=== PATIENT | male | born 1965 | race Caucasian/White ===

== ENCOUNTER 2023-01-01 10:04 | Inpatient (IN) | payer OTHER, SELFPAY ==
--- NOTE | ~2023-01-01 | XR_ITS ---
EXAMINATION: XR chest 2V 01/01/2023 12:01 INDICATION: Cough and shortness of breath. PROCEDURE: 2 view chest COMPARISON: 12/21/2018 FINDINGS: The lungs are clear. The cardiomediastinal silhouette is within normal limits. There are no pleural effusions. There is no pneumothorax suspected. There are multiple healed right rib fract ures. The lungs are hyperinflated which is consistent with, but not diagnostic of chronic obstructive pulmonary disease. Prominent left nipple shadow. IMPRESSION: 1: NO ACUTE CARDIOPULMONARY DISEASE. Reviewed, dictated and finalized at location B.
--- NOTE | ~2023-01-01 | CT_ITS ---
EXAMINATION: CT abdomen pelvis wo con DATE: 01/01/2023 13:28 INDICATION: Epigastric pain TECHNIQUE: Computed tomography (CT) of the abdomen and pelvis was performed without intravenous contr ast. The dose-length product was 162.34 mGy-cm. Automated exposure control and iterative reconstructi on technique were employed. COMPARISON: CT dated 12/21/2018 FINDINGS: there are groundglass opacities with areas of tree-in-bud configuration in the left lower l obe, suspicious for infectious/inflammatory process. Heart size normal. No significant pleural or per icardial effusion. Mild atherosclerosis. No evidence for aneurysm. Colonic diverticulosis without blake dence for diverticulitis. There is thickening of the distal esophagus, suspicious for esophagitis. The liver, spleen, pancreas, adrenal glands and kidneys are unremarkable. Gallbladder is present. Non obstructive bowel pattern. No lymphadenopathy. No free air or free fluid. Mild lumbar spondylosis. Th ere is a focal area of fat necrosis with calcification in the left abdomen. IMPRESSION: 1. Mildly thickened distal esophagus, suspicious for esophagitis. Reviewed, dictated and finalized at location B.
--- NOTE | ~2023-01-01 | US_ITS ---
Renal-Bladder ultrasound Clinical History: Acute renal failure Technique: Real-time sonographic imaging of the kidneys and urinary bladder was performed. Findings: The right kidney measures 8.7 cm in length and the left kidney measures 9.2 cm. There is no hydronephrosis or renal calculus identified. Renal cortical echogenicity is within normal limits. No renal mass lesion is identified. The urinary bladder is moderately distended at the time of this exam. No intraluminal echoes are iden tified. No abnormal wall thickening is seen. Impression: Unremarkable ultrasound of the kidneys and urinary bladder. Reviewed, dictated and finalized at location M. Impression: Unremarkable ultrasound of the kidneys and urinary bladder.
[2023-01-01 10:15] VITALS: BP 140/92; PULSE 70; RESP 16; TEMP 36.4; O2SAT 100
[2023-01-01 11:19] LABS: Basophils Absolute Auto 0.1 K/mm3 (0.0-0.1); Basophils Percent Auto 1.5 % (0.2-1.2); Eosinophils Absolute Auto 0.2 K/mm3 (0-0.3); Hematocrit 47.3 % (42.0-52.0); Hemoglobin 15.9 g/dL (14.0-18.0); Immature Granulocyte Absolute 0.01 K/mm3 (0.00-0.031); Immature Granulocyte Percent A 0.2 % (0-0.5); Lymphocytes Percent Auto 20.8 % (18.3-44.2); Mean Corpuscular HGB Conc 33.6 g/dl (32-36); Mean Corpuscular Hemoglobin 34.3 pg (26-34); Mean Corpuscular Volume 101.9 fl (80-100); Mean Platelet Volume 9.7 fl (7.4-10.4); Monocytes Absolute Auto 0.6 K/mm3 (0.1-0.6); Monocytes Percent Auto 10.6 % (2.6-8.5); Neutrophils Absolute Auto 3.4 K/mm3 (1.3-6.7); Neutrophils Percent Auto 63.9 % (45.5-73.1); Platelet Count Result 203 k/mm3 (150-375); Red Blood Count 4.64 M/mm3 (4.6-6.20); Red Cell Distribution Width 12.7 % (11.5-14.5); White Blood Count 5.3 K/mm3 (4.5-10.0)
[2023-01-01 11:52] LABS: Appearance Urine Cloudy (Clear); Bacteria Urine None Seen /hpf; Bilirubin Urine 2+ (Negative); Blood Urine Negative (Negative); Color Urine Dark Yellow (Yellow); Glucose Urine UA Negative (Negative); Hyaline Casts Urine Present /lpf; Ketones Urine 1+ mg/dL (Negative); Leukocyte Esterase Ur Trace LEU/UL (Negative); Need Manual Microscopic Reviewed; Nitrate Urine Negative (Negative); Non Pathogenic Casts >20; Protein Urine 2+ mg/dL (Negative); RBC Urine 0-2 /hpf (0-2); Specific Grav Ur 1.028 (1.001-1.035); Squamous Epithelial Cell Urine Many /hpf (Few); WBC Urine 0-5 /hpf
[2023-01-01 11:53] LABS: Add Urine Microscopic? YES
[2023-01-01 13:01] LABS: Alanine Aminotransferase 20 U/L (6-50); Albumin Level 4.3 g/dL (3.5-5.1); Alkaline Phosphatase 78 U/L (38-126); Anion Gap 8 mmol/L (8-16); Aspartate Amino Transferase 42 U/L (17-59); Bilirubin,Total 0.8 mg/dL (0.2-1.3); Blood Urea Nitrogen 33 mg/dL (9-20); Calcium 9.3 mg/dL (8.4-10.2); Carbon Dioxide 38 mmol/L (22-30); Chloride 91 mmol/L (98-107); Estimated CRCL calculation 27 ml/min; Estimated Glomerular Filt Rate 27; Glucose 99 mg/dL (65-110); Lipase 52 U/L (23-300); Sodium 137 mmol/L (137-145)
[2023-01-01 13:37] VITALS: BP 130/85; PULSE 57; RESP 18; O2SAT 100
[2023-01-01] MEDS: SODIUM CHLORIDE 0.9% IV 1,000 ML 999 ML IV CONT (13:38)
--- NOTE | 2023-01-01 13:45 | ED.GENADULT ---
HPI - General Adult General Chief complaint: Abdominal Pain Stated complaint: abd pain Time Seen by Provider: 01/01/23 11:24 History of Present Illness HPI narrative: Patient is a 57-year-old male who presents ER with nausea and vomiting. Worsening over the last week and a half. Unable to keep down food and water in the last couple days due to this. Has been taking reflux medication without improvement. Reports weight loss but unsure how much. Patient is very thin appearing and has temporal wasting. Denies history of malignancy. He is a smoker. No diarrhea or abdominal distention or pain. He does not follow with a doctor. Patient does not feel that food is getting stuck in his esophagus. Related Data Allergies Allergy/AdvReac Type Severity Reaction Status Date / Time No Known Allergies Allergy Verified 01/01/23 11:37 Review of Systems Review of Systems: All systems reviewed & are unremarkable except as noted in HPI and below Constitutional: Constitutional: Denies chills, Denies fatigue and Denies fever(s) ENT: Denies dysphagia, Denies nasal congestion and Denies sore throat Cardiovascular: Cardiovascular: Denies chest pain, Denies rapid heart rate and Denies radiating jaw, neck or arm pain Respiratory: Respiratory: Denies cough and Denies dyspnea Gastrointestinal: Gastrointestinal: Denies abdominal pain, Reports heartburn, Denies diarrhea, Denies nausea and Reports vomiting PMFSH Past Medical History Medical History (Updated 01/01/23 @ 14:23 by Yury Bruno MD) Healthy adult male Surgical History Surgical History (Updated 01/01/23 @ 14:21 by Yury Bruno MD) No history of previous surgery Social History Social History (Updated 01/01/23 @ 14:21 by Yury Bruno MD) Smoking status: Current every day smoker Exam Narrative: GENERAL: Frail-appearing, underweight, and in no acute distress. HEAD: Normocephalic, atraumatic. Temporal wasting. EYES: PERRL and EOMI. ENT: Mucous membranes moist. CHEST: Clear to auscultation. No respiratory distress. HEART: Regular rate and rhythm. Normal peripheral pulses. ABDOMEN: Soft, nontender, nondistended. EXTREMITIES: Normal range of motion. No edema. SKIN: Warm, dry, no rash. NEURO: Alert and oriented x3. PSYCH: Normal mood and affect. Course Course Emergency Course: Discussed concern for malignancy with patient due to his weight loss and smoking history and generally frail appearance. Nothing obvious seen on chest x-ray or imaging of the abdomen. There is esophagitis. Patient may require endoscopy and GI will be consulted. Patient aware he needs to stay in the hospital due to acute kidney injury and will require hydration. Hospitalist has been contacted and has accepted the patient. Vital Signs Vital signs: Vital Signs Temperature 97.6 F 01/01/23 10:15 Pulse Rate 70 01/01/23 10:15 Respiratory Rate 16 01/01/23 10:15 Blood Pressure 140/92 H 01/01/23 10:15 Pulse Oximetry 100 01/01/23 10:15 Temperature 97.6 F 01/01/23 10:15 Pulse Rate 57 L 01/01/23 13:37 Respiratory Rate 18 01/01/23 13:37 Blood Pressure 130/85 01/01/23 13:37 Pulse Oximetry 100 01/01/23 13:37 Medical Decision Making Vital Signs Vital Signs: Vital Signs Temperature 97.6 F 01/01/23 10:15 Pulse Rate 70 01/01/23 10:15 Respiratory Rate 16 01/01/23 10:15 Blood Pressure 140/92 H 01/01/23 10:15 Pulse Oximetry 100 01/01/23 10:15 Temperature 97.6 F 01/01/23 10:15 Pulse Rate 57 L 01/01/23 13:37 Respiratory Rate 18 01/01/23 13:37 Blood Pressure 130/85 01/01/23 13:37 Pulse Oximetry 100 01/01/23 13:37 Lab Data 01/01/23 11:11 01/01/23 11:11 Labs: Lab Results 01/01/23 01/01/23 01/01/23 Range/Units 11:11 11:11 11:21 WBC 5.3 (4.5-10.0) K/mm3 RBC 4.64 (4.6-6.20) M/mm3 Hgb 15.9 (14.0-18.0) g/dL Hct 47.3 (42.0-52.0) % MCV 101.9 H (80-100)
[2023-01-01] MEDS: PANTOPRAZOLE SODIUM IV 40 MG VIAL IV PUSH ×2 (14:08→20:43)
--- NOTE | 2023-01-01 15:15 | PM.IMHP ---
H&P: HPI History of Present Illness Date/Time: 01/01/23 15:15 Chief Complaint: Abdominal pain Narrative: This is a 57-year-old male patient who presents to the emergency room with complaints of nausea vomiting. This has been worse over the last week and half. The patient is only 44 kg. The patient appears older than stated age. The patient is unable to keep any food or water down for the past couple days due to the nausea vomiting. The patient has been taking medication for his acid reflux without any improvement. The patient appears emaciated and denies any malignancy. The patient does not follow with a primary care doctor. Abdominal pelvis CT was read as mild thickened distal esophagus, suspicious for esophagitis. Chest x-ray was read as no acute cardiopulmonary disease. His potassium was found to be 3.0. BUN is 33 and creatinine is 2.5. His GFR is 27. The patient does appear to be dehydrated. The patient has 2+ protein and 1+ ketones in his urine. The patient was started on IV fluids, IV Protonix and potassium was replaced. GI has been consulted. The patient is being admitted to observation status on the date of service of 01/01/2023. Review of Systems Review of Systems: All systems reviewed & are unremarkable except as noted in HPI and below Constitutional: Constitutional: Reports as per HPI and Reports no additional constitutional complaints Eyes: Eyes: Reports as per HPI and Reports no additional eye complaints ENT: Reports system reviewed and no additional complaints, except as documented and Reports Normal hearing present Cardiovascular: Cardiovascular: Reports no additional cardiovascular complaints Respiratory: Respiratory: Reports no additional respiratory complaints and Reports no additional respiratory complaints Gastrointestinal: Gastrointestinal: Reports as per HPI and Reports no additional gastrointestinal complaints Musculoskeletal: Musculoskeletal: Reports no additional musculoskeletal complaints Integumentary/Breasts: Skin/Breast: Reports system reviewed and no additional complaints, except as docu and Reports as per HPI Neurologic: Reports system reviewed and no additional complaints, except as documented, Reports as per HPI and Reports Normal hearing present Psychiatric: Psychiatric: Reports no additional psychiatric complaints and Reports as per HPI Endocrine: Endocrine: Reports no additional endocrine complaints Hematologic/Lymphatic: Hematologic/Lymphatic: Reports no additional hematologic/lymphatic complaints Allergic/Immunologic: Allergic/Immunologic: Reports no additional allergic/immunologic complaints [facility] Past Medical History Medical History (Updated 01/01/23 @ 23:06 by Comfort Douglass NP) Chronic GERD Emphysema lung Healthy adult male Surgical History Surgical History (Updated 01/01/23 @ 14:21 by Yury Bruno MD) No history of previous surgery Family History Family History Sibling Cancer Father Heart disease Mother Dementia Social History Social History (Updated 01/01/23 @ 22:49 by Comfort Douglass NP) Social History: He lives with 2 older brothers. He works for a [employer] which is a factor . The patient continues to smoke 1/2 ppd. he drinks Alcohol 3-4 alcoholic beverage a day . He has no children Code status full code Smoking packs per day: 0.5 Smoking cigarettes per day: 10.0 Years smoked: 20 Smoking pack-years: 10.00 Smoking status: Current every day smoker Tobacco type: cigarettes Second hand tobacco smoke exposure: No Alcohol intake: current Drinks per week: 21 Substance use: never Lack of Transportation: No Lack of Food: Never True Current Housing: I Have Housing Concerned About Future Housing: No Difficulty Paying Gas/Electric Bills: No Difficulty Paying for Meds: No Currently Unemployed: No Education: High School Diploma/G
[2023-01-01 15:42] VITALS: BP 155/81; PULSE 56; RESP 18; O2SAT 100
[2023-01-01] MEDS: SODIUM CHLORIDE 0.9% IV 1,000 ML 125 ML IV CONT (15:42)
[2023-01-01 15:58] VITALS: BMI 14.3
--- NOTE | 2023-01-01 16:05 | ADMGEN ---
This patient, Navid Garrido, was admitted to 3 [facility] Surg Room 309-01. Patient/family oriented to hospital policies and general routines including ID bracelet, bed and alarms, visiting hours, pain management, procedures, bathroom and other care routines, personal items, smoking policy, room service/diet, and visiting hours. Information on how to activate the Rapid Response Team has been discussed. Patient/Family are encouraged to report perceived risks to care and to ask questions if they do not understand what they are told or what they should do. Report received from Radha
[2023-01-01] MEDS: POTASSIUM BICARBONATE 25 MEQ TABEF PO (16:23)
[2023-01-01 20:07] VITALS: BP 140/72; PULSE 53; RESP 18; TEMP 36.4; O2SAT 98
[2023-01-02 00:29] LABS: Anion Gap 2 mmol/L (8-16); Blood Urea Nitrogen 33 mg/dL (9-20); Calcium 7.9 mg/dL (8.4-10.2); Carbon Dioxide 35 mmol/L (22-30); Chloride 100 mmol/L (98-107); Estimated CRCL calculation 28 ml/min; Estimated Glomerular Filt Rate 42; Glucose 107 mg/dL (65-110); Potassium 2.9 mmol/L (3.4-5.0); Sodium 137 mmol/L (137-145)
[2023-01-02] MEDS: SODIUM CHLORIDE 0.9% IV 1,000 ML 125 ML IV CONT ×2 (02:20→17:30)
[2023-01-02 02:32] LABS: Glucose Point of Care 165 mg/dl (65-105)
[2023-01-02 06:00] VITALS: BP 150/77; PULSE 51; RESP 14; TEMP 35.8; O2SAT 98
[2023-01-02 06:13] LABS: Glucose Point of Care 75 mg/dl (65-105)
--- NOTE | 2023-01-02 06:14 | PC.NURSE ---
Addendum entered by JITENDRA Shelby 01/02/23 06:34: Spoke with Dr. Cates. Added in hypoglycemic protocol and bladder scan PRN. Original Note: Pt states that he did not urinate all night and that this is not abnormal for him. Will let the appropriate staff know.
[2023-01-02 07:27] LABS: Basophils Absolute Auto 0.1 K/mm3 (0.0-0.1); Basophils Percent Auto 1.4 % (0.2-1.2); Eosinophils Absolute Auto 0.2 K/mm3 (0-0.3); Eosinophils Percent Auto 3.5 % (0-4.4); Hematocrit 40.2 % (42.0-52.0); Hemoglobin 13.5 g/dL (14.0-18.0); Immature Granulocyte Absolute 0.02 K/mm3 (0.00-0.031); Immature Granulocyte Percent A 0.4 % (0-0.5); Lymphocytes Absolute Auto 0.96 K/mm3 (0.9-3.2); Lymphocytes Percent Auto 18.7 % (18.3-44.2); Mean Corpuscular HGB Conc 33.6 g/dl (32-36); Mean Corpuscular Hemoglobin 34.1 pg (26-34); Mean Corpuscular Volume 101.5 fl (80-100); Mean Platelet Volume 9.6 fl (7.4-10.4); Monocytes Absolute Auto 0.5 K/mm3 (0.1-0.6); Monocytes Percent Auto 9.1 % (2.6-8.5); Neutrophils Absolute Auto 3.4 K/mm3 (1.3-6.7); Neutrophils Percent Auto 66.9 % (45.5-73.1); Platelet Count Result 166 k/mm3 (150-375); Red Blood Count 3.96 M/mm3 (4.6-6.20); Red Cell Distribution Width 12.7 % (11.5-14.5); White Blood Count 5.1 K/mm3 (4.5-10.0)
[2023-01-02 07:39] LABS: Lactic Acid Reflex 0.7 mmol/L (0.7-2.0)
[2023-01-02 07:49] LABS: Alanine Aminotransferase 16 U/L (6-50); Albumin Level 3.3 g/dL (3.5-5.1); Alkaline Phosphatase 50 U/L (38-126); Anion Gap 2 mmol/L (8-16); Aspartate Amino Transferase 35 U/L (17-59); Bilirubin,Total 0.8 mg/dL (0.2-1.3); Blood Urea Nitrogen 29 mg/dL (9-20); Calcium 7.7 mg/dL (8.4-10.2); Carbon Dioxide 33 mmol/L (22-30); Chloride 101 mmol/L (98-107); Estimated CRCL calculation 31 ml/min; Estimated Glomerular Filt Rate 49; Glucose 79 mg/dL (65-110); Lipase 56 U/L (23-300); Magnesium 1.9 mg/dL (1.6-2.3); Potassium 2.8 mmol/L (3.4-5.0); Sodium 136 mmol/L (137-145)
[2023-01-02] MEDS: POTASSIUM CHLORIDE INJ 40 MEQ in SODIUM CHLORIDE 0.9% IV 500 ML 75 MEQ IVPB (09:01)
[2023-01-02] MEDS: PANTOPRAZOLE SODIUM IV 40 MG VIAL IV PUSH ×2 (09:02→21:29)
[2023-01-02] MEDS: THIAMINE HCL 200 MG/2 ML VIAL 100 MG IV PUSH (09:02)
[2023-01-02] MEDS: FOLIC ACID 1 MG/0.2 ML INJ IV PUSH (09:05)
[2023-01-02 10:54] LABS: Free T4 Free Thyroxine Reflex 1.69 ng/dL (0.78-2.19)
[2023-01-02 11:37] LABS: Glucose Point of Care 70 mg/dl (65-105)
[2023-01-02 12:15] LABS: Glucose Point of Care 81 mg/dl (65-105)
[2023-01-02 12:54] LABS: Total Triiodothyronine (T3) 0.91 NG/ML (0.97-1.69)
--- NOTE | 2023-01-02 12:54 | PM.IMPN ---
Progress Note: A&P Assessment and Plan (1) JESSICA (acute kidney injury): Code(s): N17.9 - Acute kidney failure, unspecified Status: Acute Assessment and Plan: The patient did not receive routine medical care. His creatinine is 2.5. The last known creatinine was on 12/21/2018 and was 0.80. Continue with IV fluid Renal ultrasound has been ordered Most likely this is prerenal azotemia related to dehydration. Patient has had a poor oral intake and with regurgitation 01/02 creatinine improved to 1.5 after fluid resuscitation (2) Esophagitis: Code(s): K20.90 - Esophagitis, unspecified without bleeding Status: Acute Assessment and Plan: CT scan suspects esophagitis. GI has been consulted Continue with IV fluid Continue with PPI. Continue with antiemetics (3) Emphysema lung: Code(s): J43.9 - Emphysema, unspecified Status: Acute Assessment and Plan: Advised patient to quit smoking. Smoking cessation has been given to the patient (4) Tobacco abuse: Code(s): Z72.0 - Tobacco use Status: Acute Assessment and Plan: We spoke about smoking cessation for approximately 5 minutes. Smoking cessation information was given to the patient. (5) Hypokalemia: Code(s): E87.6 - Hypokalemia Status: Acute Assessment and Plan: Replace potassium as necessary. (6) Low BMI: Status: Acute Assessment and Plan: Dietary consultation with greatly be appreciated Supplemental dietary needs to with Ensure Patient will possibly need TPN. Will wait for GI assessment for making decision. Subjective Date/time seen: 01/02/23 12:54 Interval history: Patient resting in bed without any specific complaints. Patient told me that approximately a week and half ago he started having regurgitation of his food where he would eat and drink and all of a sudden it would come back up in a bolus of food. He does not have any nausea or emesis but more regurgitation of the food. Patient has had progressive weight loss over years and he states he believes he has lost weight since this happened. Patient body weight is 44 kg with a BMI of 14. Patient is very malnourished and this was likely happening before the incident with his swallowing. Review of Systems Review of Systems: All systems reviewed & are unremarkable except as noted in HPI and below Exam Narrative: GENERAL: Comfortable, no acute distress, cachectic HENMT: moist mucous membranes EYES: EOM intact b/l NECK: no lymphadenopathy RESPIRATORY: clear to auscultation CARDIO: distant heart sounds GI: soft, nontender, bowel sounds present SKIN: no rashes EXTREMITIES: no edema, redness or tenderness Objective Data Vital Signs Vital Signs: Vital Signs - 24 hr 01/01/23 13:37 01/01/23 15:42 01/01/23 16:00 Temperature Pulse Rate 57 L 56 L Respiratory Rate 18 18 Blood Pressure 130/85 155/81 H Pulse Oximetry 100 100 Oxygen Delivery Room Air 01/01/23 20:07 01/01/23 20:00 01/02/23 06:00 Temperature 97.5 F L 96.4 F L Pulse Rate 53 L 51 L Respiratory Rate 18 14 Blood Pressure 140/72 150/77 H Pulse Oximetry 98 98 Oxygen Delivery Room Air 01/02/23 08:00 Temperature Pulse Rate Respiratory Rate Blood Pressure Pulse Oximetry Oxygen Delivery Room Air Intake/Output Intake/Output: Intake & Output 12/30/22 12/31/22 01/01/23 01/02/23 23:59 23:59 23:59 23:59 Intake Total 2522 300 Balance 2522 300 Meds/Results Medications: Active Medications Generic Name Dose Route Start Last Admin Trade Name Freq PRN Reason Stop Dose Admin Chlordiazepoxide HCl 25 mg 01/01/23 22:48 Chlordiazepoxide (*Crx) 25 Mg Capsule PO Q6H PRN Withdrawal Dextrose 12.5 gm 01/02/23 06:25 Dextrose 50% 25 Gm/50 Ml Syringe IV PUSH PRN PRN Hypoglycemia Protocol Folic A
--- NOTE | 2023-01-02 13:24 | WPDGICN ---
Assessment and Plan Assessment and plan (1) Vomiting: Code(s): R11.10 - Vomiting, unspecified Status: Acute Assessment and Plan: Patient with protracted vomiting and subsequent weight loss. He was found to have hypokalemia electrolyte imbalance along with dehydration and azotemia on this basis. CT scan in the ER suggest esophagitis because of the vomiting. Etiology for this is somewhat unclear. Plan for EGD tomorrow. Continue rehydration and correction of electrolytes. (2) Abnormal weight loss: Code(s): R63.4 - Abnormal weight loss Status: Acute (3) Esophagitis: Code(s): K20.90 - Esophagitis, unspecified without bleeding Status: Acute GI Consult Note Consult date/time: 01/02/23 13:24 Reason for consult: Vomiting and weight loss HPI: Navid Garrido is a 57 year old male I am asked to see at the request the hospitalist service because of vomiting and weight loss. Patient reports for many years has had significant nausea vomiting. He states he is unable to keep food down. He states occasionally would food with stay down for some time. Over the last 1 and half weeks he has been able to keep any intake down. Patient presented the emergency room was found to have hypokalemia signs of azotemia and dehydration. CT scan suggested esophagitis. Patient admitted for IV fluids. An EGD Is requested. Patient has lost a significant amount of weight. He denies any bleeding. Denies specific abdominal pain. Review of Systems Review of Systems: Review of systems noncontributory. [facility] Past Medical History Medical History (Updated 01/02/23 @ 13:26 by Atif Chi MD) Chronic GERD Emphysema lung Healthy adult male Surgical History Surgical History (Updated 01/01/23 @ 14:21 by Yury Bruno MD) No history of previous surgery Family History Family History Sibling Cancer Father Heart disease Mother Dementia Social History Social History (Updated 01/01/23 @ 22:49 by Comfort Douglass NP) Social History: He lives with 2 older brothers. He works for a [employer] which is a factor . The patient continues to smoke 1/2 ppd. he drinks Alcohol 3-4 alcoholic beverage a day . He has no children Code status full code Smoking packs per day: 0.5 Smoking cigarettes per day: 10.0 Years smoked: 20 Smoking pack-years: 10.00 Smoking status: Current every day smoker Tobacco type: cigarettes Second hand tobacco smoke exposure: No Alcohol intake: current Drinks per week: 21 Substance use: never Lack of Transportation: No Lack of Food: Never True Current Housing: I Have Housing Concerned About Future Housing: No Difficulty Paying Gas/Electric Bills: No Difficulty Paying for Meds: No Currently Unemployed: No Education: High School Diploma/GED Difficulty w/ Childcare or Family Care: No Spiritual care concerns: No Meds Home Medications and Allergies Home Medications Medication Instructions Recorded Confirmed Type No Home Medications 01/01/23 01/01/23 History Allergies Allergy/AdvReac Type Severity Reaction Status Date / Time No Known Allergies Allergy Verified 01/01/23 16:16 Vital Signs Vital Signs - 24 hr 01/01/23 13:37 01/01/23 15:42 01/01/23 16:00 Temperature Pulse Rate 57 L 56 L Respiratory Rate 18 18 Blood Pressure 130/85 155/81 H Pulse Oximetry 100 100 Oxygen Delivery Room Air 01/01/23 20:07 01/01/23 20:00 01/02/23 06:00 Temperature 97.5 F L 96.4 F L Pulse Rate 53 L 51 L Respiratory Rate 18 14 Blood Pressure 140/72 150/77 H Pulse Oximetry 98 98 Oxygen Delivery Room Air 01/02/23 08:00 Temperature Pulse Rate Respiratory Rate Blood Pressure Pulse Oximetry Oxygen Delivery Room Air Exam Narrative: Physical exam reveals patient to be alert. Vital signs stable. HEENT exam is
[2023-01-02 13:50] VITALS: BMI 14.3
[2023-01-02 14:00] VITALS: BP 147/82; PULSE 50; RESP 16; TEMP 35.8; O2SAT 100
[2023-01-02 14:06] LABS: Potassium 3.5 mmol/L (3.4-5.0)
--- NOTE | 2023-01-02 17:33 | PC.NURSE ---
pt able to tolerate clear liquid dinner. pt c/o no n/v
[2023-01-02 18:08] LABS: Glucose Point of Care 80 mg/dl (65-105)
[2023-01-02 22:00] VITALS: BP 169/95; PULSE 60; RESP 18; TEMP 35.8; O2SAT 98
[2023-01-03] VITALS (13 sets, daily range): BP systolic 142–188; BP diastolic 75–112; PULSE 50–109; RESP 14–23; TEMP 35.7–36.4; O2SAT 95–100
[2023-01-03 00:32] LABS: Glucose Point of Care 146 mg/dl (65-105)
[2023-01-03 00:48] LABS: Potassium 3.1 mmol/L (3.4-5.0)
[2023-01-03] MEDS: SODIUM CHLORIDE 0.9% IV 1,000 ML 125 ML IV CONT ×2 (02:09→20:29)
[2023-01-03 06:17] LABS: Glucose Point of Care 86 mg/dl (65-105)
[2023-01-03 06:31] LABS: Hemoglobin 13.2 g/dL (14.0-18.0); Mean Corpuscular Hemoglobin 33.8 pg (26-34); Mean Corpuscular Volume 102.3 fl (80-100); Mean Platelet Volume 9.6 fl (7.4-10.4); Platelet Count Result 146 k/mm3 (150-375); Red Blood Count 3.91 M/mm3 (4.6-6.20); Red Cell Distribution Width 12.5 % (11.5-14.5); White Blood Count 5.3 K/mm3 (4.5-10.0)
[2023-01-03 06:41] LABS: Alanine Aminotransferase 16 U/L (6-50); Albumin Level 2.9 g/dL (3.5-5.1); Alkaline Phosphatase 47 U/L (38-126); Anion Gap 3 mmol/L (8-16); Aspartate Amino Transferase 31 U/L (17-59); Bilirubin,Total 0.9 mg/dL (0.2-1.3); Blood Urea Nitrogen 21 mg/dL (9-20); Calcium 7.2 mg/dL (8.4-10.2); Carbon Dioxide 28 mmol/L (22-30); Chloride 105 mmol/L (98-107); Estimated CRCL calculation 51 ml/min; Estimated Glomerular Filt Rate > 60; Glucose 81 mg/dL (65-110); Sodium 136 mmol/L (137-145)
--- NOTE | 2023-01-03 06:50 | P.CDI_ITS ---
CDI Query Clarified Diagnosis Clarified Diagnosis: BMI 14.3 Nutritional Diagnostic Statement: Severe malnutrition related to inadequate protein energy intake as evidence by insufficient po intake greater than 1 month and evident severe muscle wasting and subcutaneous fat loss found in NFPE. Inadequate energy intake related to altered GI function as evidence by Pt inability to keep food down. Please refer to Comprehensive Nutrition Assessment for more information. Please clarify severity of protein calorie malnutrition if Known: * Mild * Moderate * Severe * Other/ Unspecified
[2023-01-03 07:06] LABS: Magnesium 1.6 mg/dL (1.6-2.3)
--- NOTE | 2023-01-03 08:07 | P.PNIM_ITS ---
Progress Note: A&P Assessment and Plan (1) JESSICA (acute kidney injury): Code(s): N17.9 - Acute kidney failure, unspecified Status: Acute Assessment and Plan: The patient did not receive routine medical care. His creatinine is 2.5. The last known creatinine was on 12/21/2018 and was 0.80. * Continue with IV fluid * Renal ultrasound has been ordered * Most likely this is prerenal azotemia related to dehydration. * Patient has had a poor oral intake and with regurgitation * 01/02 creatinine improved to 1.5 after fluid resuscitation * 01/03 resolved. Creatinine 0.9. (2) Esophagitis: Code(s): K20.90 - Esophagitis, unspecified without bleeding Status: Acute Assessment and Plan: CT scan suspects esophagitis. * GI has been consulted * IV fluid, PPI, antiemetics * EGD preformed on 01/03 revealing esophageal foreign body with 8 pills noted in the distal esophagus, esophageal stricture that was balloon dilated, and biopsies taken. * Recommended liquid diet only, avoid pills or solid food at this time and follow-up with EGD in 2 weeks for additional dilation. * liquid PPI recommended. (3) Emphysema lung: Code(s): J43.9 - Emphysema, unspecified Status: Acute Assessment and Plan: * Advised patient to quit smoking. * Smoking cessation has been given to the patient * Not in an active exacerbation. (4) Tobacco abuse: Code(s): Z72.0 - Tobacco use Status: Acute Assessment and Plan: * We spoke about smoking cessation for approximately 5 minutes. * Smoking cessation information was given to the patient. (5) Hypokalemia: Code(s): E87.6 - Hypokalemia Status: Acute Assessment and Plan: Replace potassium as necessary. (6) Severe malnutrition: Code(s): E43 - Unspecified severe protein-calorie malnutrition Status: Acute Assessment and Plan: * Dietary consultation with greatly be appreciated * Supplemental dietary needs to with Ensure * Patient will possibly need TPN. Will wait for GI assessment for making decision. * Treat per RD recommendations. Subjective Date/time seen: 01/03/23 08:07 Interval history: Patient with no new complaints. Patient undergoing endoscopy today. Review of Systems Review of Systems: All systems reviewed & are unremarkable except as noted in HPI and below Exam Narrative: GENERAL: Comfortable, no acute distress, cachectic HENMT: moist mucous membranes EYES: EOM intact b/l NECK: no lymphadenopathy RESPIRATORY: clear to auscultation CARDIO: distant heart sounds GI: soft, nontender, bowel sounds present SKIN: no rashes EXTREMITIES: no edema, redness or tenderness Objective Data Vital Signs Vital Signs: Vital Signs - 24 hr 01/02/23 14:00 01/02/23 22:00 01/03/23 05:00 Temperature 96.5 F L 96.5 F L Pulse Rate 50 L 60 Respiratory Rate 16 18 Blood Pressure 147/82 H 169/95 H 150/75 H Pulse Oximetry 100 98 01/03/23 05:00 01/03/23 05:30 Temperature 96.2 F L 96.2 F L Pulse Rate 50 L 82 Respiratory Rate 14 16 Blood Pressure 174/99 H 171/87 H Pulse Oximetry 100 100 Intake/Output Intake/Output:
--- NOTE | 2023-01-03 08:07 | PM.IMPN ---
Progress Note: A&P Assessment and Plan (1) JESSICA (acute kidney injury): Code(s): N17.9 - Acute kidney failure, unspecified Status: Acute Assessment and Plan: The patient did not receive routine medical care. His creatinine is 2.5. The last known creatinine was on 12/21/2018 and was 0.80. Continue with IV fluid Renal ultrasound has been ordered Most likely this is prerenal azotemia related to dehydration. Patient has had a poor oral intake and with regurgitation 01/02 creatinine improved to 1.5 after fluid resuscitation 01/03 resolved. Creatinine 0.9. (2) Esophagitis: Code(s): K20.90 - Esophagitis, unspecified without bleeding Status: Acute Assessment and Plan: CT scan suspects esophagitis. GI has been consulted IV fluid, PPI, antiemetics EGD preformed on 01/03 revealing esophageal foreign body with 8 pills noted in the distal esophagus, esophageal stricture that was balloon dilated, and biopsies taken. Recommended liquid diet only, avoid pills or solid food at this time and follow-up with EGD in 2 weeks for additional dilation. liquid PPI recommended. (3) Emphysema lung: Code(s): J43.9 - Emphysema, unspecified Status: Acute Assessment and Plan: Advised patient to quit smoking. Smoking cessation has been given to the patient Not in an active exacerbation. (4) Tobacco abuse: Code(s): Z72.0 - Tobacco use Status: Acute Assessment and Plan: We spoke about smoking cessation for approximately 5 minutes. Smoking cessation information was given to the patient. (5) Hypokalemia: Code(s): E87.6 - Hypokalemia Status: Acute Assessment and Plan: Replace potassium as necessary. (6) Severe malnutrition: Code(s): E43 - Unspecified severe protein-calorie malnutrition Status: Acute Assessment and Plan: Dietary consultation with greatly be appreciated Supplemental dietary needs to with Ensure Patient will possibly need TPN. Will wait for GI assessment for making decision. Treat per RD recommendations. Subjective Date/time seen: 01/03/23 08:07 Interval history: Patient with no new complaints. Patient undergoing endoscopy today. Review of Systems Review of Systems: All systems reviewed & are unremarkable except as noted in HPI and below Exam Narrative: GENERAL: Comfortable, no acute distress, cachectic HENMT: moist mucous membranes EYES: EOM intact b/l NECK: no lymphadenopathy RESPIRATORY: clear to auscultation CARDIO: distant heart sounds GI: soft, nontender, bowel sounds present SKIN: no rashes EXTREMITIES: no edema, redness or tenderness Objective Data Vital Signs Vital Signs: Vital Signs - 24 hr 01/02/23 14:00 01/02/23 22:00 01/03/23 05:00 Temperature 96.5 F L 96.5 F L Pulse Rate 50 L 60 Respiratory Rate 16 18 Blood Pressure 147/82 H 169/95 H 150/75 H Pulse Oximetry 100 98 01/03/23 05:00 01/03/23 05:30 Temperature 96.2 F L 96.2 F L Pulse Rate 50 L 82 Respiratory Rate 14 16 Blood Pressure 174/99 H 171/87 H Pulse Oximetry 100 100 Intake/Output Intake/Output: Intake & Output 12/31/22 01/01/23 01/02/23 01/03/23 23:59 23:59 23:59 23:59 Intake Total 2522 2060 1400 Balance 2522 2060 1400 Meds/Results Medications: Active Medications Generic Name Dose Route Start Last Admin Trade Name Freq PRN Reason Stop Dose Admin Chlordiazepoxide HCl 25 mg 01/01/23 22:48 Chlordiazepoxide (*Crx) 25 Mg Capsule PO Q6H PRN Withdrawal Dextrose 12.5 gm 01/02/23 06:25 Dextrose 50% 25 Gm/50 Ml Syringe IV PUSH PRN PRN Hypoglycemia Protocol Folic Acid 1 mg 01/02/23 09:00 01/02/23 09:05 Folic Acid 1 Mg/0.2 Ml Inj IV PUSH 1 mg QAM YEYO Administration Glucagon 1 mg 01/02/23 06:25 Glucagon For Inj 1 Mg Vial IM PRN PRN Hypoglycemia Protocol
[2023-01-03] MEDS: PANTOPRAZOLE SODIUM IV 40 MG VIAL IV PUSH ×2 (09:01→20:29)
[2023-01-03] MEDS: THIAMINE HCL 200 MG/2 ML VIAL 100 MG IV PUSH (09:01)
[2023-01-03] MEDS: FOLIC ACID 1 MG/0.2 ML INJ IV PUSH (09:01)
[2023-01-03] MEDS: POTASSIUM CHLORIDE INJ 40 MEQ in SODIUM CHLORIDE 0.9% IV 500 ML 130 MEQ IVPB (09:01)
[2023-01-03] MEDS: MAGNESIUM SULF 2 GM/WATER 50ML 2 GM/50 ML BAG IVPB (09:01)
[2023-01-03] MEDS: NICOTINE (*PBKC) 14 MG PATCH 1 PATCH TRANSDERM (09:02)
[2023-01-03] MEDS: LACTATED RINGERS 1,000 ML 150 ML IV CONT (10:46)
--- NOTE | 2023-01-03 11:17 | WPDANESEPPF ---
Anes - Initial Pre Proc Eval Procedure: Operation Date: 01/03/23 12:30 Proposed Procedures p Esophagogastroduodenoscopy - Atif Chi MD Date/Time: 01/03/23 11:17 Surgeon: Alok Jay MD Pre Op Diagnosis: JESSICA, Esophagitis, Weight Loss Patient Data Age: 57 Gender: M Height: 1.75 m Weight: 44 kg Last Vital Signs Temp 97.3 F L 01/03/23 10:41 Pulse 50 L 01/03/23 10:41 Resp 18 01/03/23 10:41 BP 163/82 H 01/03/23 10:41 Pulse Ox 100 01/03/23 10:41 O2 Del Method Room Air 01/03/23 10:41 Allergies Allergy/AdvReac Type Severity Reaction Status Date / Time No Known Allergies Allergy Verified 01/03/23 10:39 Home Medications Medication Instructions Recorded Confirmed Type No Home Medications 01/01/23 01/01/23 History Laboratory Tests 01/02/23 01/02/23 01/02/23 07:01 09:04 11:34 WBC RBC Hgb Hct MCV MCH MCHC RDW Plt Count MPV Sodium Potassium Chloride Carbon Dioxide Anion Gap BUN Creatinine Estim Creat Clear Calc Estimated GFR Glucose POC Capillary Glucose 81 mg/dl mg/dl 70 mg/dl mg/dl (65-105) (65-105) Calcium Magnesium Total Bilirubin AST ALT Alkaline Phosphatase Total Protein Albumin Total T3 0.91 NG/ML L NG/ML (0.97-1.69) 01/02/23 01/02/23 01/02/23 13:37 17:18 18:05 WBC RBC Hgb Hct MCV MCH MCHC RDW Plt Count MPV Sodium Potassium 3.5 mmol/L mmol/L 3.1 mmol/L L mmol/L (3.4-5.0) (3.4-5.0) Chloride Carbon Dioxide Anion Gap BUN Creatinine Estim Creat Clear Calc Estimated GFR Glucose POC Capillary Glucose 80 mg/dl mg/dl (65-105) Calcium Magnesium Total Bilirubin AST ALT Alkaline Phosphatase Total Protein Albumin Total T3 01/03/23 01/03/23 01/03/23 00:29 06:13 06:15 WBC RBC Hgb Hct MCV MCH MCHC RDW Plt Count MPV Sodium Potassium Chloride Carbon Dioxide Anion Gap BUN Creatinine Estim Creat Clear Calc Estimated GFR Glucose POC Capillary Glucose 146 mg/dl H mg/dl 86 mg/dl mg/dl (65-105) (65-105) Calcium Magnesium 1.6 mg/dL mg/dL (1.6-2.3) Total Bilirubin AST ALT Alkaline Phosphatase Total Protein Albumin Total T3 01/03/23 01/03/23 06:17 06:17 WBC 5.3 K/mm3 K/mm3 (4.5-10.0) RBC 3.91 M/mm3 L M/mm3 (4.6-6.20) Hgb 13.2 g/dL L g/dL (14.0-18.0) Hct 40.0 % L % (42.0-52.0) MCV 102.3 fl H fl (80-100) MCH 33.8 pg pg (26-34) MCHC 33.0 g/dl g/dl (32-36) RDW 12.5 % % (11.5-14.5) Plt Count 146 k/mm3 L k/mm3 (150-375) MPV 9.6 fl fl (7.4-10.4) Sodium 136 mmol/L L mmol/L (137-145) Potassium 3.0 mmol/L L mmol/L (3.4-5.0) Chloride 105 mmol/L mmol/L (98-107) Carbon Dioxide 28 mmol/L mmol/L (22-30) Anion Gap 3 mmol/L L mmol/L (8-16) BUN 21 mg/dL H mg/dL (9-20) Creatinine 0.90 mg/dL mg/dL (0.7-1.3) Estim Creat Clear Calc 5
--- NOTE | 2023-01-03 12:39 | SUR.PHASEII ---
Patient is hypertensive both post op and pre op.(see flowsheet documentation) Informed Dr. Gold. No new orders received. Informed floor nurse, Dahlia that Dr. Gold wants her to contact patient's hospitalist for HTN treatment on inpatient unit. Patient is stable and asymptomatic at this time.
--- NOTE | 2023-01-03 13:42 | PCNFU ---
Nutrition Follow-Up Complete: Severe malnutrition related to inadequate protein energy intake as evidenced by insufficient po intake greater than 1 month and evident severe muscle wasting and subcutaneous fat loss found in NFPE Inadequate energy intake related to altered GI function as evidenced by pt inability to keep food down Meet estimated needs - progressing Goal: Pt current nutrition is Clear liquids with Ensure Enlive ordered 500 ml/TID. Provides 350 kcals and 20 g protein per 237 ml. Nutrition recommendation: Continue with current orders and advance diet per MD Last recorded weight is 44 kg. Bowel Motility: No BM recorded Labs Reviewed:Alb 2.9, Na 136, K+ 3.0, BUN 21 Meds Noted: Zofran, protonix, thiamine, folic acid, prevacid Skin: WNL Additional Notes: Pt had EGD today and findings of esophageal stricture with 8 pills lodged in esophagus. Balloon dilation performed. Currently on liquid diet with supplements ordered. Drank some ice water. Continue to monitor plans. Pt will need supplements at home to improve nutritional status. Monitor diet orders, test results, wt, labs. Follow up in 3 days.
[2023-01-03 13:59] LABS: Glucose Point of Care 80 mg/dl (65-105)
--- NOTE | 2023-01-03 16:30 | PC.NURSE ---
Addendum entered by Grace Farah RN 01/03/23 16:44: orders received at 1636 Original Note: Received call from GI nurse Radha regarding patient being hypertensive in post-op endoscopy. Called hospitalist WALT Bella at 1300 to inform her of BP reading of 173/110 and to inform her no BP medications are ordered. WALT stated she would order. 1530 no orders received. Jena GODOY was on the floor. Asked if she would be ordering the medications as patient is still hypertensive. WALT gave herself reminder on note-pad and stated she would order. 1634 no orders received yet.
[2023-01-03] MEDS: LANSOPRAZOLE ORAL SUSP 30 MG/10 ML ORAL.SUSP BY MOUTH (18:01)
[2023-01-03 18:15] LABS: Potassium 3.9 mmol/L (3.4-5.0)
[2023-01-04 03:55] VITALS: PULSE 63
[2023-01-04 06:00] VITALS: BP 149/78; PULSE 100; RESP 16; TEMP 36.3; O2SAT 96
[2023-01-04 06:57] LABS: Hemoglobin 13.1 g/dL (14.0-18.0); Immature Platelet Fraction Pct 3.3 % (0.9-11.2); Mean Corpuscular HGB Conc 33.6 g/dl (32-36); Mean Corpuscular Hemoglobin 33.5 pg (26-34); Mean Corpuscular Volume 99.7 fl (80-100); Platelet Count Result 137 k/mm3 (150-375); Red Blood Count 3.91 M/mm3 (4.6-6.20); Red Cell Distribution Width 12.4 % (11.5-14.5); White Blood Count 5.2 K/mm3 (4.5-10.0)
[2023-01-04 07:10] LABS: Glucose Point of Care 86 mg/dl (65-105)
[2023-01-04 07:24] LABS: Alanine Aminotransferase 14 U/L (6-50); Albumin Level 2.7 g/dL (3.5-5.1); Alkaline Phosphatase 45 U/L (38-126); Anion Gap 3 mmol/L (8-16); Aspartate Amino Transferase 29 U/L (17-59); Bilirubin,Total 1.1 mg/dL (0.2-1.3); Blood Urea Nitrogen 12 mg/dL (9-20); Calcium 7.3 mg/dL (8.4-10.2); Carbon Dioxide 28 mmol/L (22-30); Chloride 105 mmol/L (98-107); Estimated CRCL calculation 64 ml/min; Estimated Glomerular Filt Rate > 60; Glucose 81 mg/dL (65-110); Sodium 136 mmol/L (137-145)
[2023-01-04] MEDS: SODIUM CHLORIDE 0.9% IV 1,000 ML 125 ML IV CONT ×2 (08:11→15:15)
[2023-01-04] MEDS: POTASSIUM CHLORIDE INJ 40 MEQ in SODIUM CHLORIDE 0.9% IV 500 ML 130 MEQ IVPB (08:12)
[2023-01-04] MEDS: FOLIC ACID 1 MG/0.2 ML INJ IV PUSH (08:13)
[2023-01-04] MEDS: PANTOPRAZOLE SODIUM IV 40 MG VIAL IV PUSH ×2 (08:13→21:06)
[2023-01-04] MEDS: amLODIPine BESYLATE 5 MG TABLET 10 MG PO (08:13)
[2023-01-04] MEDS: LANSOPRAZOLE ORAL SUSP 30 MG/10 ML ORAL.SUSP BY MOUTH ×2 (08:13→17:23)
[2023-01-04] MEDS: THIAMINE HCL 200 MG/2 ML VIAL 100 MG IV PUSH (10:20)
--- NOTE | 2023-01-04 10:35 | WPDANESPN ---
Anes - Prog Note Post-Op Date/Time: 01/04/23 10:35 Cardiovascular status: normal Respiratory status: normal Airway patency: baseline Mental status: baseline Post-Op hydration status: normal Vital Signs: Last Vital Signs Temp 36.3 C L 01/04/23 06:00 Pulse 100 01/04/23 06:00 Resp 16 01/04/23 06:00 BP 149/78 H 01/04/23 06:00 Pulse Ox 96 01/04/23 06:00 O2 Del Method Room Air 01/03/23 20:00 Pain Score (VAS): 10/01 I/O: Intake & Output 01/03/23 01/04/23 01/04/23 23:59 07:59 15:59 Intake Total 1790 1100 480 Balance 1790 1100 480 Laboratory Tests 01/04/23 06:09 01/04/23 06:09 01/03/23 01/03/23 01/04/23 13:56 17:22 06:09 WBC 5.2 RBC 3.91 L Hgb 13.1 L Hct 39.0 L MCV 99.7 MCH 33.5 MCHC 33.6 RDW 12.4 Plt Count 137 L MPV 10.0 % Immature Plt Fraction 3.3 Sodium Potassium 3.9 Chloride Carbon Dioxide Anion Gap BUN Creatinine Estim Creat Clear Calc Estimated GFR Glucose POC Capillary Glucose 80 Calcium Total Bilirubin AST ALT Alkaline Phosphatase Total Protein Albumin 01/04/23 01/04/23 06:09 07:03 WBC RBC Hgb Hct MCV MCH MCHC RDW Plt Count MPV % Immature Plt Fraction Sodium 136 L Potassium 3.0 L Chloride 105 Carbon Dioxide 28 Anion Gap 3 L BUN 12 D Creatinine 0.70 Estim Creat Clear Calc 64 Estimated GFR > 60 Glucose 81 POC Capillary Glucose 86 Calcium 7.3 L Total Bilirubin 1.1 AST 29 ALT 14 Alkaline Phosphatase 45 Total Protein 5.0 L Albumin 2.7 L Post-procedural complaints: none Patient Feedback: Patient satisfied with anesthetic care.
[2023-01-04 11:58] LABS: Glucose Point of Care 95 mg/dl (65-105)
[2023-01-04 14:00] VITALS: BP 138/76; PULSE 60; RESP 16; TEMP 36.4; O2SAT 100
--- NOTE | 2023-01-04 14:06 | P.PNIM_ITS ---
Progress Note: A&P Assessment and Plan (1) JESSICA (acute kidney injury): Code(s): N17.9 - Acute kidney failure, unspecified Status: Acute Assessment and Plan: The patient did not receive routine medical care. His creatinine is 2.5. The last known creatinine was on 12/21/2018 and was 0.80. * Continue with IV fluid * Renal ultrasound has been ordered * Most likely this is prerenal azotemia related to dehydration. * Patient has had a poor oral intake and with regurgitation * 01/02 creatinine improved to 1.5 after fluid resuscitation * 01/03 resolved. Creatinine 0.9. (2) Esophagitis: Code(s): K20.90 - Esophagitis, unspecified without bleeding Status: Acute Assessment and Plan: CT scan suspects esophagitis. * GI has been consulted * IV fluid, PPI, antiemetics * EGD preformed on 01/03 revealing esophageal foreign body with 8 pills noted in the distal esophagus, esophageal stricture that was balloon dilated, and biopsies taken. * Recommended liquid diet only, avoid pills or solid food at this time and follow-up with EGD in 2 weeks for additional dilation. * liquid PPI recommended. * 01/04 pt is tolerating his diet well. May need to consider TPN due to malnutrition. (3) Emphysema lung: Code(s): J43.9 - Emphysema, unspecified Status: Acute Assessment and Plan: * Advised patient to quit smoking. * Smoking cessation has been given to the patient * Not in an active exacerbation. (4) Tobacco abuse: Code(s): Z72.0 - Tobacco use Status: Acute Assessment and Plan: * We spoke about smoking cessation for approximately 5 minutes. * Smoking cessation information was given to the patient. (5) Hypokalemia: Code(s): E87.6 - Hypokalemia Status: Acute Assessment and Plan: Replace potassium as necessary. (6) Severe malnutrition: Code(s): E43 - Unspecified severe protein-calorie malnutrition Status: Acute Assessment and Plan: * Dietary consultation with greatly be appreciated * Supplemental dietary needs to with Ensure * Patient will possibly need TPN. Will wait for GI assessment for making decision. * Treat per RD recommendations. Subjective Date/time seen: 01/04/23 14:06 Interval history: No new complaints at this time. Review of Systems Review of Systems: All systems reviewed & are unremarkable except as noted in HPI and below Exam Narrative: GENERAL: Comfortable, no acute distress, cachectic HENMT: moist mucous membranes EYES: EOM intact b/l NECK: no lymphadenopathy RESPIRATORY: clear to auscultation CARDIO: distant heart sounds GI: soft, nontender, bowel sounds present SKIN: no rashes EXTREMITIES: no edema, redness or tenderness Objective Data Vital Signs Vital Signs: Vital Signs - 24 hr 01/03/23 16:00 01/03/23 20:00 01/03/23 20:00 Temperature Pulse Rate Pulse Rate [Left Radial Palpation] 68 Respiratory Rate Blood Pressure 188/99 H Pulse Oximetry Oxygen Delivery Room Air 01/03/23 21:28 01/03/23 23:37 01/04/23 03:55 Temperature 97.3 F L Pulse Rate 64 Pulse Rate [Left Radial Palpation] 63 63
--- NOTE | 2023-01-04 14:06 | PM.IMPN ---
Progress Note: A&P Assessment and Plan (1) JESSICA (acute kidney injury): Code(s): N17.9 - Acute kidney failure, unspecified Status: Acute Assessment and Plan: The patient did not receive routine medical care. His creatinine is 2.5. The last known creatinine was on 12/21/2018 and was 0.80. Continue with IV fluid Renal ultrasound has been ordered Most likely this is prerenal azotemia related to dehydration. Patient has had a poor oral intake and with regurgitation 01/02 creatinine improved to 1.5 after fluid resuscitation 01/03 resolved. Creatinine 0.9. (2) Esophagitis: Code(s): K20.90 - Esophagitis, unspecified without bleeding Status: Acute Assessment and Plan: CT scan suspects esophagitis. GI has been consulted IV fluid, PPI, antiemetics EGD preformed on 01/03 revealing esophageal foreign body with 8 pills noted in the distal esophagus, esophageal stricture that was balloon dilated, and biopsies taken. Recommended liquid diet only, avoid pills or solid food at this time and follow-up with EGD in 2 weeks for additional dilation. liquid PPI recommended. 01/04 pt is tolerating his diet well. May need to consider TPN due to malnutrition. (3) Emphysema lung: Code(s): J43.9 - Emphysema, unspecified Status: Acute Assessment and Plan: Advised patient to quit smoking. Smoking cessation has been given to the patient Not in an active exacerbation. (4) Tobacco abuse: Code(s): Z72.0 - Tobacco use Status: Acute Assessment and Plan: We spoke about smoking cessation for approximately 5 minutes. Smoking cessation information was given to the patient. (5) Hypokalemia: Code(s): E87.6 - Hypokalemia Status: Acute Assessment and Plan: Replace potassium as necessary. (6) Severe malnutrition: Code(s): E43 - Unspecified severe protein-calorie malnutrition Status: Acute Assessment and Plan: Dietary consultation with greatly be appreciated Supplemental dietary needs to with Ensure Patient will possibly need TPN. Will wait for GI assessment for making decision. Treat per RD recommendations. Subjective Date/time seen: 01/04/23 14:06 Interval history: No new complaints at this time. Review of Systems Review of Systems: All systems reviewed & are unremarkable except as noted in HPI and below Exam Narrative: GENERAL: Comfortable, no acute distress, cachectic HENMT: moist mucous membranes EYES: EOM intact b/l NECK: no lymphadenopathy RESPIRATORY: clear to auscultation CARDIO: distant heart sounds GI: soft, nontender, bowel sounds present SKIN: no rashes EXTREMITIES: no edema, redness or tenderness Objective Data Vital Signs Vital Signs: Vital Signs - 24 hr 01/03/23 16:00 01/03/23 20:00 01/03/23 20:00 Temperature Pulse Rate Pulse Rate [Left Radial Palpation] 68 Respiratory Rate Blood Pressure 188/99 H Pulse Oximetry Oxygen Delivery Room Air 01/03/23 21:28 01/03/23 23:37 01/04/23 03:55 Temperature 97.3 F L Pulse Rate 64 Pulse Rate [Left Radial Palpation] 63 63 Respiratory Rate 14 Blood Pressure 156/95 H Pulse Oximetry 98 Oxygen Delivery 01/04/23 06:00 01/04/23 08:15 01/04/23 14:00 Temperature 97.3 F L 97.6 F Pulse Rate 100 60 Pulse Rate [Left Radial Palpation] Respiratory Rate 16 16 Blood Pressure 149/78 H 138/76 Pulse Oximetry 96 100 Oxygen Delivery Room Air Intake/Output Intake/Output: Intake & Output 01/01/23 01/02/23 01/03/23 01/04/23 23:59 23:59 23:59 23:59 Intake Total 3172 0 3190 1820 Balance 2 0 3190 1820 Meds/Results Medications: Active Medications Generic Name Dose Route Start Last Admin Trade Name Freq PRN Reason Stop Dose Admin Amlodipine Besylate 10 mg 01/04/23 09:00 01/04/23 08:13 Amlodipine Besylate 5 Mg Tablet PO
--- NOTE | 2023-01-04 16:45 | WPDGIPROGNO ---
Progress Note: A&P Assessment and Plan (1) Esophageal stricture: Code(s): K22.2 - Esophageal obstruction Status: Acute Assessment and Plan: s/p dilatation yesterday up to 12mm with balloon feeling better, tolerating liquids will need another EGD with dilatation in about 2 weeks that can be done as outpatient bx pending continue with ppi bid continue with liquid diet, shakes, puree, etc ok to go home soon (2) Esophagitis: Code(s): K20.90 - Esophagitis, unspecified without bleeding Status: Acute Assessment and Plan: on ppi pending bx (3) Severe malnutrition: Code(s): E43 - Unspecified severe protein-calorie malnutrition Status: Acute (4) JESSICA (acute kidney injury): Code(s): N17.9 - Acute kidney failure, unspecified Status: Acute Assessment and Plan: resolved (5) Chronic GERD: Code(s): K21.9 - Gastro-esophageal reflux disease without esophagitis Status: Acute Subjective Date/time seen: 01/04/23 16:45 Interval history: patient says that egd with dilatation yesterday helped, he is having liquids and feeling better. Asking when he can go home Review of Systems Review of Systems: All systems reviewed & are unremarkable except as noted in HPI and below Exam Narrative: GENERAL: Comfortable, no acute distress, cachectic HENMT: moist mucous membranes EYES: EOM intact b/l NECK: no lymphadenopathy RESPIRATORY: clear to auscultation CARDIO: distant heart sounds GI: soft, nontender, bowel sounds present SKIN: no rashes EXTREMITIES: no edema, redness or tenderness Objective Data Vital Signs Vital Signs: Vital Signs - 24 hr 01/03/23 20:00 01/03/23 20:00 01/03/23 21:28 Temperature 97.3 F L Pulse Rate 64 Pulse Rate [Left Radial Palpation] 68 Respiratory Rate 14 Blood Pressure 156/95 H Pulse Oximetry 98 Oxygen Delivery Room Air 01/03/23 23:37 01/04/23 03:55 01/04/23 06:00 Temperature 97.3 F L Pulse Rate 100 Pulse Rate [Left Radial Palpation] 63 63 Respiratory Rate 16 Blood Pressure 149/78 H Pulse Oximetry 96 Oxygen Delivery 01/04/23 08:15 01/04/23 14:00 Temperature 97.6 F Pulse Rate 60 Pulse Rate [Left Radial Palpation] Respiratory Rate 16 Blood Pressure 138/76 Pulse Oximetry 100 Oxygen Delivery Room Air Intake/Output Intake/Output: Intake & Output 01/01/23 01/02/23 01/03/23 01/04/23 23:59 23:59 23:59 23:59 Intake Total 2521 2059 3190 3340 Balance 2521 2059 3190 3340 Meds/Results Medications: Active Medications Generic Name Dose Route Start Last Admin Trade Name Freq PRN Reason Stop Dose Admin Amlodipine Besylate 10 mg 01/04/23 09:00 01/04/23 08:13 Amlodipine Besylate 5 Mg Tablet PO 10 mg QAM YEYO Administration Dextrose 12.5 gm 01/02/23 06:25 Dextrose 50% 25 Gm/50 Ml Syringe IV PUSH PRN PRN Hypoglycemia Protocol Folic Acid 1 mg 01/02/23 09:00 01/04/23 08:13 Folic Acid 1 Mg/0.2 Ml Inj IV PUSH 1 mg QAM YEYO Administration Glucagon 1 mg 01/02/23 06:25 Glucagon For Inj 1 Mg Vial IM PRN PRN Hypoglycemia Protocol Glucose 15 gm 01/02/23 06:25 Glucose Oral Gel 15 Gm Of Glucse In 37.5 Gm Tube PO PRN PRN Hypoglycemia Protocol Hydralazine HCl 10 mg 01/03/23 16:36 Hydralazine Hcl 20 Mg/Ml Vial IV PUSH Q8H PRN Blood Pressure - High Sodium Chloride 1,000 mls @ 125 mls/hr 01/01/23 14:10 01/04/23 15:15 Normal Saline Iv IV CONT 125 mls/hr .Q8H YEYO Administration Dextrose 1,000 mls @ 100 mls/hr 01/02/23 06:25 Dextrose 5% 1,000 Ml IVPB PRN PRN Hypoglycemia Protocol Lansoprazole 30 mg 01/03/23 17:00 01/04/23 08:13 Lansoprazole Oral Susp 30 Mg/10 Ml Oral.Susp BY MOUTH 30 mg BID YEYO Administration Nicotine 1 patch 01/01/23 23:15 01/04/23 08:21 Nicotine (*Pbkc) 14 Mg Patch TRANSDERM Not Given QAM YEYO Ondanse
[2023-01-04 18:12] LABS: Glucose Point of Care 100 mg/dl (65-105)
[2023-01-04 21:40] VITALS: BP 154/85; PULSE 53; RESP 14; TEMP 36.9; O2SAT 100
[2023-01-05] MEDS: SODIUM CHLORIDE 0.9% IV 1,000 ML 125 ML IV CONT (02:32)
[2023-01-05 04:39] LABS: Glucose Point of Care 102 mg/dl (65-105)
[2023-01-05 05:19] VITALS: BP 134/80; PULSE 55; RESP 14; TEMP 36.6; O2SAT 99
[2023-01-05 07:01] LABS: Hematocrit 38.5 % (42.0-52.0); Hemoglobin 13.1 g/dL (14.0-18.0); Immature Platelet Fraction Pct 3.4 % (0.9-11.2); Mean Corpuscular Hemoglobin 33.5 pg (26-34); Mean Corpuscular Volume 98.5 fl (80-100); Mean Platelet Volume 10.2 fl (7.4-10.4); Platelet Count Result 122 k/mm3 (150-375); Red Blood Count 3.91 M/mm3 (4.6-6.20); Red Cell Distribution Width 12.1 % (11.5-14.5); White Blood Count 4.6 K/mm3 (4.5-10.0)
[2023-01-05 07:33] LABS: Alanine Aminotransferase 14 U/L (6-50); Albumin Level 2.7 g/dL (3.5-5.1); Alkaline Phosphatase 47 U/L (38-126); Anion Gap 2 mmol/L (8-16); Aspartate Amino Transferase 27 U/L (17-59); Blood Urea Nitrogen 5 mg/dL (9-20); Calcium 6.9 mg/dL (8.4-10.2); Carbon Dioxide 32 mmol/L (22-30); Chloride 100 mmol/L (98-107); Estimated CRCL calculation 64 ml/min; Estimated Glomerular Filt Rate > 60; Glucose 84 mg/dL (65-110); Sodium 134 mmol/L (137-145)
[2023-01-05 08:02] LABS: Glucose Point of Care 82 mg/dl (65-105)
[2023-01-05] MEDS: amLODIPine BESYLATE 5 MG TABLET 10 MG PO (08:33)
[2023-01-05] MEDS: PANTOPRAZOLE SODIUM IV 40 MG VIAL IV PUSH ×2 (08:33→20:12)
[2023-01-05] MEDS: THIAMINE HCL 200 MG/2 ML VIAL 100 MG IV PUSH (08:34)
[2023-01-05] MEDS: FOLIC ACID 1 MG/0.2 ML INJ IV PUSH (08:34)
[2023-01-05] MEDS: LANSOPRAZOLE ORAL SUSP 30 MG/10 ML ORAL.SUSP BY MOUTH ×2 (08:34→16:17)
--- NOTE | 2023-01-05 08:52 | WPDGIPROGNO ---
Progress Note: A&P Assessment and Plan (1) Esophageal stricture: Code(s): K22.2 - Esophageal obstruction Status: Acute Assessment and Plan: s/p dilatation up to 12mm with balloon feeling better, tolerating liquids will need another EGD with dilatation in about 2 weeks that can be done as outpatient bx pending continue with ppi bid continue with liquid diet, shakes, puree, etc home probably tomorrow Dr Chi returns tomorrow (2) Esophagitis: Code(s): K20.90 - Esophagitis, unspecified without bleeding Status: Acute Assessment and Plan: on ppi pending bx (3) Severe malnutrition: Code(s): E43 - Unspecified severe protein-calorie malnutrition Status: Acute (4) JESSICA (acute kidney injury): Code(s): N17.9 - Acute kidney failure, unspecified Status: Acute Assessment and Plan: resolved (5) Chronic GERD: Code(s): K21.9 - Gastro-esophageal reflux disease without esophagitis Status: Acute Subjective Date/time seen: 01/05/23 08:52 Interval history: no more nausea, only having liquid diet Review of Systems Review of Systems: All systems reviewed & are unremarkable except as noted in HPI and below Exam Narrative: GENERAL: Comfortable, no acute distress, cachectic HENMT: moist mucous membranes EYES: EOM intact b/l NECK: no lymphadenopathy RESPIRATORY: clear to auscultation CARDIO: distant heart sounds GI: soft, nontender, bowel sounds present SKIN: no rashes EXTREMITIES: no edema, redness or tenderness Objective Data Vital Signs Vital Signs: Vital Signs - 24 hr 01/04/23 14:00 01/04/23 21:40 01/04/23 20:00 Temperature 97.6 F 98.4 F Pulse Rate 60 53 L Respiratory Rate 16 14 Blood Pressure 138/76 154/85 H Pulse Oximetry 100 100 Oxygen Delivery Room Air 01/05/23 05:19 01/05/23 07:59 Temperature 97.8 F Pulse Rate 55 L Respiratory Rate 14 Blood Pressure 134/80 Pulse Oximetry 99 Oxygen Delivery Room Air Intake/Output Intake/Output: Intake & Output 01/02/23 01/03/23 01/04/23 01/05/23 23:59 23:59 23:59 23:59 Intake Total 20590 5060 250 Balance 20590 5060 250 Meds/Results Medications: Active Medications Generic Name Dose Route Start Last Admin Trade Name Yumiko PRN Reason Stop Dose Admin Amlodipine Besylate 10 mg 01/04/23 09:00 01/05/23 08:33 Amlodipine Besylate 5 Mg Tablet PO 10 mg QAM YEYO Administration Dextrose 12.5 gm 01/02/23 06:25 Dextrose 50% 25 Gm/50 Ml Syringe IV PUSH PRN PRN Hypoglycemia Protocol Folic Acid 1 mg 01/02/23 09:00 01/05/23 08:34 Folic Acid 1 Mg/0.2 Ml Inj IV PUSH 1 mg QAM YEYO Administration Glucagon 1 mg 01/02/23 06:25 Glucagon For Inj 1 Mg Vial IM PRN PRN Hypoglycemia Protocol Glucose 15 gm 01/02/23 06:25 Glucose Oral Gel 15 Gm Of Glucse In 37.5 Gm Tube PO PRN PRN Hypoglycemia Protocol Hydralazine HCl 10 mg 01/03/23 16:36 Hydralazine Hcl 20 Mg/Ml Vial IV PUSH Q8H PRN Blood Pressure - High Dextrose 1,000 mls @ 100 mls/hr 01/02/23 06:25 Dextrose 5% 1,000 Ml IVPB PRN PRN Hypoglycemia Protocol Potassium Chloride 40 meq/ 520 mls @ 130 mls/hr 01/05/23 08:30 Sodium Chloride IVPB 01/05/23 12:29 ONCE ONE Lansoprazole 30 mg 01/03/23 17:00 01/05/23 08:34 Lansoprazole Oral Susp 30 Mg/10 Ml Oral.Susp BY MOUTH 30 mg BID YEYO Administration Nicotine 1 patch 01/01/23 23:15 01/05/23 08:34 Nicotine (*Pbkc) 14 Mg Patch TRANSDERM Not Given QAM YEYO Ondansetron HCl 4 mg 01/01/23 22:48 Ondansetron Inj 4 Mg/2 Ml Vial IV PUSH Q6H PRN Nausea And Vomiting Pantoprazole Sodium 40 mg 01/01/23 21:00 01/05/23 08:33 Pantoprazole Sodium Iv 40 Mg Vial IV PUSH 40 mg Q12HR YEYO Administration Thiamine HCl 100 mg 01/02/23 09:00 01/05/23 08:34 Thiamine Hcl 200 Mg/2 Ml Vial IV PUSH 100 mg JANELL
[2023-01-05] MEDS: POTASSIUM CHLORIDE INJ 40 MEQ in SODIUM CHLORIDE 0.9% IV 500 ML 130 MEQ IVPB (09:42)
[2023-01-05] MEDS: POTASSIUM CHLORIDE 20 MEQ PACKET (FOR LIQUID) 40 MEQ PO (09:42)
[2023-01-05 11:53] LABS: Glucose Point of Care 106 mg/dl (65-105)
[2023-01-05 13:45] VITALS: BP 122/79; PULSE 81; RESP 16; TEMP 36.2; O2SAT 99
--- NOTE | 2023-01-05 13:52 | P.PNIM_ITS ---
Progress Note: A&P Assessment and Plan (1) Esophagitis: Code(s): K20.90 - Esophagitis, unspecified without bleeding Status: Acute Assessment and Plan: CT scan suspects esophagitis. * GI has been consulted * IV fluid, PPI, antiemetics * EGD preformed on 01/03 revealing esophageal foreign body with 8 pills noted in the distal esophagus, esophageal stricture that was balloon dilated, and biopsies taken. * Recommended liquid diet only, avoid pills or solid food at this time and follow-up with EGD in 2 weeks for additional dilation. * liquid PPI recommended. * 01/04 pt is tolerating his diet well. * 01/05 patient is doing well. Talked with GI doc and he recommended patient stay 1 more day then discharge tomorrow. (2) JESSICA (acute kidney injury): Code(s): N17.9 - Acute kidney failure, unspecified Status: Acute Assessment and Plan: The patient did not receive routine medical care. His creatinine is 2.5. The last known creatinine was on 12/21/2018 and was 0.80. * Continue with IV fluid * Renal ultrasound has been ordered * Most likely this is prerenal azotemia related to dehydration. * Patient has had a poor oral intake and with regurgitation * 01/02 creatinine improved to 1.5 after fluid resuscitation * 01/03 resolved. Creatinine 0.9. (3) Emphysema lung: Code(s): J43.9 - Emphysema, unspecified Status: Acute Assessment and Plan: * Advised patient to quit smoking. * Smoking cessation has been given to the patient * Not in an active exacerbation. (4) Tobacco abuse: Code(s): Z72.0 - Tobacco use Status: Acute Assessment and Plan: * We spoke about smoking cessation for approximately 5 minutes. * Smoking cessation information was given to the patient. (5) Hypokalemia: Code(s): E87.6 - Hypokalemia Status: Acute Assessment and Plan: Replace potassium as necessary. (6) Severe malnutrition: Code(s): E43 - Unspecified severe protein-calorie malnutrition Status: Acute Assessment and Plan: * Dietary consultation with greatly be appreciated * Supplemental dietary needs to with Ensure * Treat per RD recommendations. Subjective Date/time seen: 01/05/23 13:52 Interval history: continue liquid/pureed diet. Patient not having any nausea or vomiting associated with this. He is tolerating his diet well. Patient denying chest pain, shortness a breath, cough, body aches and chills. Review of Systems Review of Systems: All systems reviewed & are unremarkable except as noted in HPI and below Exam Narrative: GENERAL: Comfortable, no acute distress, cachectic HENMT: moist mucous membranes EYES: EOM intact b/l NECK: no lymphadenopathy RESPIRATORY: clear to auscultation CARDIO: distant heart sounds GI: soft, nontender, bowel sounds present SKIN: no rashes EXTREMITIES: no edema, redness or tenderness Objective Data Vital Signs Vital Signs: Vital Signs - 24 hr 01/04/23 14:00 01/04/23 21:40 01/04/23 20:00 Temperature 97.6 F 98.4 F Pulse Rate 60 53 L Respiratory Rate 16 14 Blood Pressure 138/76 154/85 H Pulse Oximetry 100 100 Oxygen Delivery Room Air 01/05/23 05:19 01/05/23 07:59
--- NOTE | 2023-01-05 13:52 | PM.IMPN ---
Progress Note: A&P Assessment and Plan (1) Esophagitis: Code(s): K20.90 - Esophagitis, unspecified without bleeding Status: Acute Assessment and Plan: CT scan suspects esophagitis. GI has been consulted IV fluid, PPI, antiemetics EGD preformed on 01/03 revealing esophageal foreign body with 8 pills noted in the distal esophagus, esophageal stricture that was balloon dilated, and biopsies taken. Recommended liquid diet only, avoid pills or solid food at this time and follow-up with EGD in 2 weeks for additional dilation. liquid PPI recommended. 01/04 pt is tolerating his diet well. 01/05 patient is doing well. Talked with GI doc and he recommended patient stay 1 more day then discharge tomorrow. (2) JESSICA (acute kidney injury): Code(s): N17.9 - Acute kidney failure, unspecified Status: Acute Assessment and Plan: The patient did not receive routine medical care. His creatinine is 2.5. The last known creatinine was on 12/21/2018 and was 0.80. Continue with IV fluid Renal ultrasound has been ordered Most likely this is prerenal azotemia related to dehydration. Patient has had a poor oral intake and with regurgitation 01/02 creatinine improved to 1.5 after fluid resuscitation 01/03 resolved. Creatinine 0.9. (3) Emphysema lung: Code(s): J43.9 - Emphysema, unspecified Status: Acute Assessment and Plan: Advised patient to quit smoking. Smoking cessation has been given to the patient Not in an active exacerbation. (4) Tobacco abuse: Code(s): Z72.0 - Tobacco use Status: Acute Assessment and Plan: We spoke about smoking cessation for approximately 5 minutes. Smoking cessation information was given to the patient. (5) Hypokalemia: Code(s): E87.6 - Hypokalemia Status: Acute Assessment and Plan: Replace potassium as necessary. (6) Severe malnutrition: Code(s): E43 - Unspecified severe protein-calorie malnutrition Status: Acute Assessment and Plan: Dietary consultation with greatly be appreciated Supplemental dietary needs to with Ensure Treat per RD recommendations. Subjective Date/time seen: 01/05/23 13:52 Interval history: continue liquid/pureed diet. Patient not having any nausea or vomiting associated with this. He is tolerating his diet well. Patient denying chest pain, shortness a breath, cough, body aches and chills. Review of Systems Review of Systems: All systems reviewed & are unremarkable except as noted in HPI and below Exam Narrative: GENERAL: Comfortable, no acute distress, cachectic HENMT: moist mucous membranes EYES: EOM intact b/l NECK: no lymphadenopathy RESPIRATORY: clear to auscultation CARDIO: distant heart sounds GI: soft, nontender, bowel sounds present SKIN: no rashes EXTREMITIES: no edema, redness or tenderness Objective Data Vital Signs Vital Signs: Vital Signs - 24 hr 01/04/23 14:00 01/04/23 21:40 01/04/23 20:00 Temperature 97.6 F 98.4 F Pulse Rate 60 53 L Respiratory Rate 16 14 Blood Pressure 138/76 154/85 H Pulse Oximetry 100 100 Oxygen Delivery Room Air 01/05/23 05:19 01/05/23 07:59 Temperature 97.8 F Pulse Rate 55 L Respiratory Rate 14 Blood Pressure 134/80 Pulse Oximetry 99 Oxygen Delivery Room Air Intake/Output Intake/Output: Intake & Output 01/02/23 01/03/23 01/04/23 01/05/23 23:59 23:59 23:59 23:59 Intake Total 2059 3190 5060 830 Balance 2059 3190 5060 830 Meds/Results Medications: Active Medications Generic Name Dose Route Start Last Admin Trade Name Freq PRN Reason Stop Dose Admin Amlodipine Besylate 10 mg 01/04/23 09:00 01/05/23 08:33 Amlodipine Besylate 5 Mg Tablet PO 10 mg QAM YEYO Administration Dextrose 12.5 gm 01/02/23 06:25 Dextrose 50% 25 Gm/50 Ml Syringe IV PUSH PRN PRN Hypoglycemia Prot
[2023-01-05 16:08] LABS: Potassium 3.9 mmol/L (3.4-5.0)
[2023-01-05 16:36] LABS: Glucose Point of Care 119 mg/dl (65-105)
[2023-01-05 21:57] LABS: Glucose Point of Care 158 mg/dl (65-105)
[2023-01-05 22:00] VITALS: BP 140/95; PULSE 62; RESP 18; TEMP 36.2; O2SAT 100
[2023-01-06 06:00] VITALS: BP 155/93; PULSE 66; RESP 16; TEMP 36.2; O2SAT 98
[2023-01-06 06:28] LABS: Hematocrit 38.8 % (42.0-52.0); Hemoglobin 13.3 g/dL (14.0-18.0); Immature Platelet Fraction Pct 4.3 % (0.9-11.2); Mean Corpuscular HGB Conc 34.3 g/dl (32-36); Mean Corpuscular Hemoglobin 34.1 pg (26-34); Mean Corpuscular Volume 99.5 fl (80-100); Mean Platelet Volume 9.7 fl (7.4-10.4); Platelet Count Result 123 k/mm3 (150-375); Red Cell Distribution Width 12.2 % (11.5-14.5); White Blood Count 4.5 K/mm3 (4.5-10.0)
[2023-01-06 06:46] LABS: Anion Gap 0 mmol/L (8-16); Calcium 6.9 mg/dL (8.4-10.2); Carbon Dioxide 33 mmol/L (22-30); Chloride 99 mmol/L (98-107); Estimated CRCL calculation 74 ml/min; Estimated Glomerular Filt Rate > 60; Glucose 86 mg/dL (65-110); Potassium 3.3 mmol/L (3.4-5.0); Sodium 132 mmol/L (137-145)
[2023-01-06 07:18] LABS: Blood Urea Nitrogen < 2 mg/dL (9-20)
[2023-01-06 08:00] LABS: Glucose Point of Care 90 mg/dl (65-105)
[2023-01-06] MEDS: MAGNESIUM SULF 4 GM/WATER100ML 4 GM/100 ML BAG IVPB (09:23)
[2023-01-06] MEDS: LANSOPRAZOLE ORAL SUSP 30 MG/10 ML ORAL.SUSP BY MOUTH (09:24)
[2023-01-06] MEDS: amLODIPine BESYLATE 5 MG TABLET 10 MG PO (09:24)
[2023-01-06] MEDS: FOLIC ACID 1 MG/0.2 ML INJ IV PUSH (09:24)
[2023-01-06] MEDS: POTASSIUM CHLORIDE 20 MEQ PACKET (FOR LIQUID) 40 MEQ PO (09:25)
[2023-01-06] MEDS: THIAMINE HCL 200 MG/2 ML VIAL 100 MG IV PUSH (09:25)
[2023-01-06] MEDS: PANTOPRAZOLE SODIUM IV 40 MG VIAL IV PUSH (09:27)
--- NOTE | 2023-01-06 10:53 | PCNFU ---
Addendum entered by Jen Villalpando, RD, LDN 01/06/23 10:59: Ensure Enlive 500 ml/ TID: 2100 kcals, 120 g protein, 1080 ml free water. Not for sole-source nutrition, supplementing liquid/puree diet per MD Original Note: Nutrition Follow-Up Complete: Severe malnutrition related to inadequate protein energy intake as evidenced by insufficient po intake greater than 1 month and evident severe muscle wasting and subcutaneous fat loss found in NFPE Inadequate energy intake related to altered GI function as evidenced by pt inability to keep food down Goal: Meet estimated needs - Progressing Pt current nutrition is Clear liquids with 500 ml Ensure TID. Nutrition recommendation: Continue current nutrition care plan and orders per MD Last recorded weight is 44 kg. Bowel Motility: Last BM +1 01/06/23 Labs Reviewed: Hgb 13.3, Hct 38.8, Alb 2.7, Na 132, K+ 3.3, BUN <2, Cre 0.6, Mag 1.0 - Low BUN may be related to low BMI/malnutrition Meds Noted: Zofran, protonix, thiamine, folic acid, pervacid Skin: WNL Additional Notes: Intakes improved. Surgery may be letting patient go home tomorrow with liquid/puree diet and follow up for additional esophageal dilation in 2 weeks. Continue current care plan Monitor diet orders, test results, wt, labs. Follow up in 3 day.
[2023-01-06 11:15] LABS: Glucose Point of Care 93 mg/dl (65-105)
--- NOTE | 2023-01-06 12:46 | WPDGIPROGNO ---
Progress Note: A&P Assessment and Plan (1) Esophageal stricture: Code(s): K22.2 - Esophageal obstruction Status: Acute Assessment and Plan: Patient with rather severe distal esophageal stricture. This was dilated on Friday with number 12 through the scope balloon. Plan to keep patient on a liquid PPI acid suppression. Limit diet to liquids at this point. He may tolerate milk shakes and full liquids. Follow-up EGD initially in 2 weeks for additional dilatation. This will need several recurrent dilatations to obtain adequate size. At present await biopsy results. Patient can be discharged with outpatient follow-up as scheduled. (2) Severe malnutrition: Code(s): E43 - Unspecified severe protein-calorie malnutrition Status: Acute Subjective Date/time seen: 01/06/23 12:46 Interval history: Patient alert. Tolerating liquid diet today with no difficulties. Denies abdominal pain no heartburn. Review of Systems Review of Systems: Review of systems noncontributory. Exam Narrative: Physical exam reveals patient to be alert comfortable at rest. HEENT exam reveals no icterus. Lungs are clear. Heart without murmur. Abdomen bowel sounds present soft nontender. He is quite thin and wasted. Objective Data Vital Signs Vital Signs: Vital Signs - 24 hr 01/05/23 13:45 01/05/23 22:00 01/05/23 20:00 Temperature 97.1 F L 97.2 F L Pulse Rate 81 62 Respiratory Rate 16 18 Blood Pressure 122/79 140/95 H Pulse Oximetry 99 100 Oxygen Delivery Room Air 01/06/23 06:00 01/06/23 09:25 Temperature 97.1 F L Pulse Rate 66 Respiratory Rate 16 Blood Pressure 155/93 H Pulse Oximetry 98 Oxygen Delivery Room Air Intake/Output Intake/Output: Intake & Output 01/03/23 01/04/23 01/05/23 01/06/23 23:59 23:59 23:59 23:59 Intake Total 3190 5060 2710 350 Balance 3190 5060 2710 350 Meds/Results Medications: Active Medications Generic Name Dose Route Start Last Admin Trade Name Freq PRN Reason Stop Dose Admin Amlodipine Besylate 10 mg 01/04/23 09:00 01/06/23 09:24 Amlodipine Besylate 5 Mg Tablet PO 10 mg QAM YEYO Administration Dextrose 12.5 gm 01/02/23 06:25 Dextrose 50% 25 Gm/50 Ml Syringe IV PUSH PRN PRN Hypoglycemia Protocol Folic Acid 1 mg 01/02/23 09:00 01/06/23 09:24 Folic Acid 1 Mg/0.2 Ml Inj IV PUSH 1 mg QAM YEYO Administration Glucagon 1 mg 01/02/23 06:25 Glucagon For Inj 1 Mg Vial IM PRN PRN Hypoglycemia Protocol Glucose 15 gm 01/02/23 06:25 Glucose Oral Gel 15 Gm Of Glucse In 37.5 Gm Tube PO PRN PRN Hypoglycemia Protocol Hydralazine HCl 10 mg 01/03/23 16:36 Hydralazine Hcl 20 Mg/Ml Vial IV PUSH Q8H PRN Blood Pressure - High Dextrose 1,000 mls @ 100 mls/hr 01/02/23 06:25 Dextrose 5% 1,000 Ml IVPB PRN PRN Hypoglycemia Protocol Lansoprazole 30 mg 01/03/23 17:00 01/06/23 09:24 Lansoprazole Oral Susp 30 Mg/10 Ml Oral.Susp BY MOUTH 30 mg BID YEYO Administration Nicotine 1 patch 01/01/23 23:15 01/06/23 09:27 Nicotine (*[facility]) 14 Mg Patch TRANSDERM Not Given QAM YEYO Ondansetron HCl 4 mg 01/01/23 22:48 Ondansetron Inj 4 Mg/2 Ml Vial IV PUSH Q6H PRN Nausea And Vomiting Pantoprazole Sodium 40 mg 01/01/23 21:00 01/06/23 09:27 Pantoprazole Sodium Iv 40 Mg Vial IV PUSH 40 mg Q12HR YEYO Administration Thiamine HCl 100 mg 01/02/23 09:00 01/06/23 09:25 Thiamine Hcl 200 Mg/2 Ml Vial IV PUSH 100 mg DAILY YEYO Administration Radiology Results: ITS Impressions Chest X-Ray 01/01/23 12:02 IMPRESSION: 1: NO ACUTE CARDIOPULMONARY DISEASE. Abdomen/Pelvis CT 01/01/23 13:38 IMPRESSION: 1. Mildly thickened distal esophagus, suspicious for esophagitis. Renal Ultrasound 01/02/23 10:04 Impression: Unremarkable ultrasound of the kidneys and urinary bladder.
--- NOTE | 2023-01-06 13:10 | P.DS_ITS ---
DS: Admitting Diagnosis Discharge Date 01/06/23 Admitting Diagnosis dysphagia, regurgitation DS: Discharge Diagnosis Discharge Diagnosis (1) Esophagitis: Code(s): K20.90 - Esophagitis, unspecified without bleeding Status: Acute Assessment and Plan: CT scan suspects esophagitis. * GI has been consulted * IV fluid, PPI, antiemetics * EGD preformed on 01/03 revealing esophageal foreign body with 8 pills noted in the distal esophagus, esophageal stricture that was balloon dilated, and biop sies taken. * Recommended liquid diet only, avoid pills or solid food at this time and follow-up with EGD in 2 weeks for additional dilation. * liquid PPI recommended. * 01/04 pt is tolerating his diet well. * 01/05 patient is doing well. Talked with GI doc and he recommended patient stay 1 more day then discharge tomorrow. * 01/06 Patient clear for discharge (2) JESSICA (acute kidney injury): Code(s): N17.9 - Acute kidney failure, unspecified Status: Acute Assessment and Plan: The patient did not receive routine medical care. His creatinine is 2.5. The last known creatinine was on 12/21/2018 and was 0.80. * Continue with IV fluid * Renal ultrasound has been ordered * Most likely this is prerenal azotemia related to dehydration. * Patient has had a poor oral intake and with regurgitation * 01/02 creatinine improved to 1.5 after fluid resuscitation * 01/03 resolved. Creatinine 0.9. (3) Emphysema lung: Code(s): J43.9 - Emphysema, unspecified Status: Acute Assessment and Plan: * Advised patient to quit smoking. * Smoking cessation has been given to the patient * Not in an active exacerbation. (4) Tobacco abuse: Code(s): Z72.0 - Tobacco use Status: Acute Assessment and Plan: * We spoke about smoking cessation for approximately 5 minutes. * Smoking cessation information was given to the patient. (5) Hypokalemia: Code(s): E87.6 - Hypokalemia Status: Acute Assessment and Plan: Replace potassium as necessary. (6) Severe malnutrition: Code(s): E43 - Unspecified severe protein-calorie malnutrition Status: Acute Assessment and Plan: * Dietary consultation with greatly be appreciated * Supplemental dietary needs to with Ensure * Treat per RD recommendations. DS: Summary Hospital Course Hospital Course: This is a 57-year-old patient of the past medical history significant for emphysema that presented to the ED on 01/01/2023 with chief complaint of inability to keep food or water down for the past week and a half to 2 weeks. Patient stated that he would eat or drink and shortly after that the food would come up into a bolus and he would have to spit it out. He stated that it was worse when he laid down flat. He denies nausea. Patient does have a history of GERD. CT abdomen pelvis with mildly thickened distal esophagus suspicious for esophagitis. Patient was found to have an increased creatinine of 2.5 Patient was started on IV fluids and IV Protonix b.i.d.. creatinine improved with IV fluids. He was also found to have a potassium of 3 point now and this was replaced as needed. GI recommending EGD. EGD performed on 01/03/2023 which revealed a esophageal foreign body of approximately 8 pills retained in the distal esophagus which were removed. Patient also had esophageal stricture which was dilated. The scope was unable to be passed distally into the
--- NOTE | 2023-01-06 13:10 | PM.DS ---
DS: Admitting Diagnosis Discharge Date 01/06/23 Admitting Diagnosis dysphagia, regurgitation DS: Discharge Diagnosis Discharge Diagnosis (1) Esophagitis: Code(s): K20.90 - Esophagitis, unspecified without bleeding Status: Acute Assessment and Plan: CT scan suspects esophagitis. GI has been consulted IV fluid, PPI, antiemetics EGD preformed on 01/03 revealing esophageal foreign body with 8 pills noted in the distal esophagus, esophageal stricture that was balloon dilated, and biopsies taken. Recommended liquid diet only, avoid pills or solid food at this time and follow-up with EGD in 2 weeks for additional dilation. liquid PPI recommended. 01/04 pt is tolerating his diet well. 01/05 patient is doing well. Talked with GI doc and he recommended patient stay 1 more day then discharge tomorrow. 01/06 Patient clear for discharge (2) JESSICA (acute kidney injury): Code(s): N17.9 - Acute kidney failure, unspecified Status: Acute Assessment and Plan: The patient did not receive routine medical care. His creatinine is 2.5. The last known creatinine was on 12/21/2018 and was 0.80. Continue with IV fluid Renal ultrasound has been ordered Most likely this is prerenal azotemia related to dehydration. Patient has had a poor oral intake and with regurgitation 01/02 creatinine improved to 1.5 after fluid resuscitation 01/03 resolved. Creatinine 0.9. (3) Emphysema lung: Code(s): J43.9 - Emphysema, unspecified Status: Acute Assessment and Plan: Advised patient to quit smoking. Smoking cessation has been given to the patient Not in an active exacerbation. (4) Tobacco abuse: Code(s): Z72.0 - Tobacco use Status: Acute Assessment and Plan: We spoke about smoking cessation for approximately 5 minutes. Smoking cessation information was given to the patient. (5) Hypokalemia: Code(s): E87.6 - Hypokalemia Status: Acute Assessment and Plan: Replace potassium as necessary. (6) Severe malnutrition: Code(s): E43 - Unspecified severe protein-calorie malnutrition Status: Acute Assessment and Plan: Dietary consultation with greatly be appreciated Supplemental dietary needs to with Ensure Treat per RD recommendations. DS: Summary Hospital Course Hospital Course: This is a 57-year-old patient of the past medical history significant for emphysema that presented to the ED on 01/01/2023 with chief complaint of inability to keep food or water down for the past week and a half to 2 weeks. Patient stated that he would eat or drink and shortly after that the food would come up into a bolus and he would have to spit it out. He stated that it was worse when he laid down flat. He denies nausea. Patient does have a history of GERD. CT abdomen pelvis with mildly thickened distal esophagus suspicious for esophagitis. Patient was found to have an increased creatinine of 2.5 Patient was started on IV fluids and IV Protonix b.i.d.. creatinine improved with IV fluids. He was also found to have a potassium of 3 point now and this was replaced as needed. GI recommending EGD. EGD performed on 01/03/2023 which revealed a esophageal foreign body of approximately 8 pills retained in the distal esophagus which were removed. Patient also had esophageal stricture which was dilated. The scope was unable to be passed distally into the stomach due to how small the esophageal opening was. Biopsies were taken at this time. It is recommended per GI that patient be put on a liquid diet only and avoid pills or solid food. Follow-up with an additional EGD in 2 weeks for repeat dilation and continue a liquid PPI. Diet of liquid food should be continued until he is able to repeat EGD. Patient is severely malnourished with a BMI of 14.3. Dietary was consulted and recommended supplementation. Discuss
[2023-01-06 13:16] LABS: Magnesium 2.5 mg/dL (1.6-2.3)
[2023-01-06 13:39] LABS: Potassium 4.1 mmol/L (3.4-5.0)
[2023-01-06 14:00] VITALS: BP 125/76; PULSE 65; RESP 20; TEMP 35.7; O2SAT 100
== END 2023-01-06 15:50 | disposition home or self-care (01) | DRG 391 ==
LOC: ANHED 14:23 → ANH3MEDSUR 15:18
PROVIDERS: Internal Medicine; Internal Medicine Gastroenterology; Nurse Practitioner; Admitting Provider Internal Medicine; Emergency Provider Emergency Medicine; Visit Provider Internal Medicine Critical Care Medicine
PROC: 0DJ08ZZ Inspection of Upper Intestinal Tract, Via Natural or Artificial Opening Endoscopic (ICD-10-PCS; CPT 43235; principal; 2023-01-03 12:30)
DX: K20.90 Esophagitis, unspecified without bleeding (principal); E43 Unspecified severe protein-calorie malnutrition; N17.9 Acute kidney failure, unspecified; Z68.1 Body mass index [BMI] 19.9 or less, adult; T18.198A Other foreign object in esophagus causing other injury, initial encounter; K22.2 Esophageal obstruction; J43.9 Emphysema, unspecified; E87.6 Hypokalemia; K21.9 Gastro-esophageal reflux disease without esophagitis; E86.0 Dehydration; F17.210 Nicotine dependence, cigarettes, uncomplicated
CPT/HCPCS: 36415; 71046; 74176; 76775; 80048; 80053; 81001; 82948; 83605; 83690; 83735; 84132; 84439; 84443; 84480; 85025; 85027; 85055; 88305; 88342; 96361; 96365; 96366; 96374; 96375; 96376; 99285; A9270; C9113; G0378; J2704; J3411; J3475; J3480; J7030; J7040; J7120

== ENCOUNTER 2023-03-27 00:20 | Day surgery (SDC) | payer OTHER, SELFPAY ==
[2023-02-25 14:48] VITALS: BMI 15.9
[2023-03-27 12:32] VITALS: BP 120/82; PULSE 62; RESP 20; TEMP 36.4; O2SAT 100; BMI 31.7
--- NOTE | 2023-03-27 12:40 | PM.HPGS ---
History of Present Illness History of Present Illness Consent: Risks, benefits, and alternatives have been discussed and questions answered. Patient agrees to proceed with procedure. Chief complaint: Esophageal Stricture Narrative: Navid Garrido is a 57 year old male Presents for EGD. Patient initially seen in evaluation December of this year. EGD at that time revealed a very severe esophageal stricture on the basis of acid reflux. He was able to be dilated a small amount was anticipated he would follow up in several weeks for follow-up EGD. He states that he felt improved and did not follow-up. He presents today stating his swallowing is just as bad as it ever was. Patient initially prescribed omeprazole 40mg p.o. daily. He states he was able to take this medication initially but now even his pills cannot pass his obstruction in the esophagus. Patient denies any significant heartburn. He returns today for follow-up EGD and dilatation. Patient is very thin and has lost weight in the past. He has difficulty maintaining oral intake at present. Review of Systems Review of Systems: Review of systems noncontributory. [facility] Past Medical History Medical History (Updated 01/04/23 @ 16:46 by Cleve Sigala MD) Chronic GERD Emphysema lung Esophageal stricture Healthy adult male Surgical History Surgical History (Updated 01/01/23 @ 14:21 by Yury Bruno MD) No history of previous surgery Family History Family History Sibling Cancer Father Heart disease Mother Dementia Social History Social History (Updated 01/01/23 @ 22:49 by Comfort Douglass NP) Social History: He lives with 2 older brothers. He works for a [employer] which is a factor . The patient continues to smoke 1/2 ppd. he drinks Alcohol 3-4 alcoholic beverage a day . He has no children Code status full code Smoking packs per day: 0.5 Smoking cigarettes per day: 10.0 Years smoked: 25 Smoking pack-years: 12.50 Smoking status: Current every day smoker Tobacco type: cigarettes Second hand tobacco smoke exposure: No Alcohol intake: current Drinks per week: 21 Substance use: never Substance use type: does not use Lack of Transportation: No Lack of Food: Never True Current Housing: I Have Housing Concerned About Future Housing: No Difficulty Paying Gas/Electric Bills: No Difficulty Paying for Meds: No Currently Unemployed: No Education: High School Diploma/GED Difficulty w/ Childcare or Family Care: No Living arrangements: with family Spiritual care concerns: No Meds Home Medications and Allergies Home Medications Medication Instructions Recorded Confirmed Type amlodipine 5 mg tablet (Norvasc) 10 mg PO QAM #30 tabs 01/06/23 03/11/23 Rx omeprazole 40 mg capsule,delayed 40 mg PO DAILY 02/25/23 03/11/23 History release Allergies Allergy/AdvReac Type Severity Reaction Status Date / Time No Known Allergies Allergy Verified 03/27/23 12:31 Exam Narrative: Physical exam reveals patient to be alert. Vital signs stable. HEENT exam is unremarkable. Patient is anicteric. Lungs are clear to auscultation and percussion. Heart is without murmur or extra sounds. Abdomen bowel sounds are present soft nontender with no organomegaly. Patient is very thin almost cachectic in appearance. Assessment and Plan Assessment and plan (1) Esophageal stricture: Code(s): K22.2 - Esophageal obstruction Status: Acute Assessment and Plan: Patient with very severe tight esophageal stricture appears to be on the basis of acid reflux. Patient is been noncompliant with follow-up as advised. Plan for follow-up EGD at this time hopefully dilatation could be accomplished. Restarting PPI acid suppression strongly encouraged. Further recommendations may be given after endoscopy. I ant
[2023-03-27] MEDS: LACTATED RINGERS 1,000 ML 150 ML IV CONT (12:53)
--- NOTE | 2023-03-27 13:52 | WPDANESEPPF ---
Anes - Initial Pre Proc Eval Procedure: Operation Date: 03/27/23 13:45 Proposed Procedures p Esophagogastroduodenoscopy - Atif Chi MD Date/Time: 03/27/23 13:52 Surgeon: Atif Chi MD Pre Op Diagnosis: Esophageal Stricture Patient Data Age: 57 Gender: M Height: 1.75 m Weight: 97.6 kg Last Vital Signs Temp 97.6 F 03/27/23 12:32 Pulse 62 03/27/23 12:32 Resp 20 03/27/23 12:32 BP 120/82 03/27/23 12:32 Pulse Ox 100 03/27/23 12:32 O2 Del Method Room Air 03/27/23 12:32 Allergies Allergy/AdvReac Type Severity Reaction Status Date / Time No Known Allergies Allergy Verified 03/27/23 12:31 Home Medications Medication Instructions Recorded Confirmed Type amlodipine 5 mg tablet (Norvasc) 10 mg PO QAM #30 tabs 01/06/23 03/11/23 Rx omeprazole 40 mg capsule,delayed 40 mg PO DAILY 02/25/23 03/11/23 History release Patient hx anesthesia problems: none Family hx anesthesia problems: none Results Review: All pre-operative results and documents have been reviewed as part of the pre-operative evaluation. [facility] Past Medical History Medical History (Updated 01/04/23 @ 16:46 by Cleve Sigala MD) Chronic GERD Emphysema lung Esophageal stricture Healthy adult male Surgical History Surgical History (Updated 01/01/23 @ 14:21 by Yury Bruno MD) No history of previous surgery Family History Family History Sibling Cancer Father Heart disease Mother Dementia Social History Social History (Updated 01/01/23 @ 22:49 by Comfort Douglass NP) Social History: He lives with 2 older brothers. He works for a [employer] which is a factor . The patient continues to smoke 1/2 ppd. he drinks Alcohol 3-4 alcoholic beverage a day . He has no children Code status full code Smoking packs per day: 0.5 Smoking cigarettes per day: 10.0 Years smoked: 25 Smoking pack-years: 12.50 Smoking status: Current every day smoker Tobacco type: cigarettes Second hand tobacco smoke exposure: No Alcohol intake: current Drinks per week: 21 Substance use: never Substance use type: does not use Lack of Transportation: No Lack of Food: Never True Current Housing: I Have Housing Concerned About Future Housing: No Difficulty Paying Gas/Electric Bills: No Difficulty Paying for Meds: No Currently Unemployed: No Education: High School Diploma/GED Difficulty w/ Childcare or Family Care: No Living arrangements: with family Spiritual care concerns: No Anes - Eval Final PreProcedure Day of Procedure 03/27/23 13:52 Patient weight: cachectic Heart: regular rate and rhythm Lungs: clear to auscultation Airway: Mallampati scale class II Neurological: alert and oriented Last oral intake: >/= 8 hours ASA classification: III Emergent: no Anesthetic plan: proceed Anesthesia type and monitoring: general GIVS and standard monitoring Results Review: All pre-operative results and documents have been reviewed as part of the pre-operative evaluation. Informed Consent: The patient's anesthetic plan and its attendant risks and benefits were discussed with the patient/family/POA. Questions were solicited and answers provided to the satisfaction of the patient/family/POA.
[2023-03-27 14:47] VITALS: BP 152/99; PULSE 68; RESP 22; O2SAT 100
[2023-03-27 14:57] VITALS: BP 161/99; PULSE 62; RESP 18; O2SAT 99
[2023-03-27 15:07] VITALS: BP 161/98; PULSE 56; RESP 16; O2SAT 100
== END 2023-03-27 15:15 | disposition home or self-care (01) ==
PROVIDERS: Visit Provider Internal Medicine Gastroenterology
PROC: 0DJ08ZZ Inspection of Upper Intestinal Tract, Via Natural or Artificial Opening Endoscopic (ICD-10-PCS; CPT 43235; principal; 2023-03-27 13:45)
DX: K22.2 Esophageal obstruction (principal); K22.10 Ulcer of esophagus without bleeding; K21.9 Gastro-esophageal reflux disease without esophagitis; J43.9 Emphysema, unspecified; F17.210 Nicotine dependence, cigarettes, uncomplicated
CPT/HCPCS: 43249; C1726; J2704; J7120

== ENCOUNTER 2023-05-05 02:07 | Day surgery (SDC) | payer OTHER, SELFPAY ==
[2023-04-30 08:26] VITALS: BMI 14.3
[2023-05-05 08:38] VITALS: BP 153/90; PULSE 65; RESP 18; TEMP 36.4; O2SAT 100
[2023-05-05] MEDS: LACTATED RINGERS 1,000 ML 150 ML IV CONT (08:41)
--- NOTE | 2023-05-05 08:51 | PM.HPGS ---
History of Present Illness History of Present Illness Consent: Risks, benefits, and alternatives have been discussed and questions answered. Patient agrees to proceed with procedure. Chief complaint: Esophageal Stricture Narrative: Navid Garrido is a 57 year old male Found to have very tight esophageal stricture in December of this year. This was dilated. Patient placed on proton pump inhibitors. He felt some improvement but did not follow up till March. Follow-up in March revealed that tight stricture had recurred. Patient presents today for additional dilatation. Patient had an extremely tight distal esophageal stricture at the time of endoscopy. Grossly felt to be benign. Previous biopsies have been unremarkable. Aside from inflammation. Family history noncontributory. Patient states some improvement since recent dilatation. Review of Systems Review of Systems: Review of systems noncontributory. REPLACED BY [facility] Past Medical History Medical History (Updated 01/04/23 @ 16:46 by Cleve Sigala MD) Chronic GERD Emphysema lung Esophageal stricture Healthy adult male Surgical History Surgical History (Updated 01/01/23 @ 14:21 by Yury Bruno MD) No history of previous surgery Family History Family History Sibling Cancer Father Heart disease Mother Dementia Social History Social History (Updated 01/01/23 @ 22:49 by Comfort Douglass NP) Social History: He lives with 2 older brothers. He works for a [employer] which is a factor . The patient continues to smoke 1/2 ppd. he drinks Alcohol 3-4 alcoholic beverage a day . He has no children Code status full code Smoking packs per day: 0.5 Smoking cigarettes per day: 10.0 Years smoked: 30 Smoking pack-years: 15.00 Smoking status: Current every day smoker Tobacco type: cigarettes Second hand tobacco smoke exposure: No Alcohol intake: current Drinks per week: 21 Alcohol use details: amanda & madi Substance use: never Substance use type: does not use Lack of Transportation: No Lack of Food: Never True Current Housing: I Have Housing Concerned About Future Housing: No Difficulty Paying Gas/Electric Bills: No Difficulty Paying for Meds: No Currently Unemployed: No Education: High School Diploma/GED Difficulty w/ Childcare or Family Care: No Living arrangements: with family Spiritual care concerns: No Meds Home Medications and Allergies Home Medications Medication Instructions Recorded Confirmed Type omeprazole 40 mg capsule,delayed 20 mg PO DAILY 02/25/23 05/05/23 History release Allergies Allergy/AdvReac Type Severity Reaction Status Date / Time No Known Allergies Allergy Verified 05/05/23 08:37 Vital Signs Vital Signs - 24 hr 05/05/23 08:38 Temperature 97.5 F L Pulse Rate 65 Respiratory Rate 18 Blood Pressure 153/90 H Pulse Oximetry 100 Oxygen Delivery Room Air Exam Narrative: Physical exam reveals patient to be alert. Vital signs stable. HEENT exam is unremarkable. Patient is anicteric. Very thin in appearance he Lungs are clear to auscultation and percussion. Heart is without murmur or extra sounds. Abdomen bowel sounds are present soft nontender with no organomegaly. Assessment and Plan Assessment and plan (1) Esophageal stricture: Code(s): K22.2 - Esophageal obstruction Status: Acute Assessment and Plan: patient with very tight distal esophageal stricture appears to be in the basis of acid reflux. He has significant weight loss on this basis. Plan for follow-up EGD now may be required several times to obtain adequate passage of the esophagus. Continue long-term PPI use. Soft diet advised caution with large pieces of meat. (2) Severe malnutrition: Code(s): E43 - Unspecified severe protein-calorie malnutrition Status: Acute
--- NOTE | 2023-05-05 09:00 | WPDANESEPPF ---
Anes - Initial Pre Proc Eval Procedure: Operation Date: 05/05/23 10:00 Proposed Procedures p Esophagogastroduodenoscopy - Atif Chi MD Date/Time: 05/05/23 09:00 Surgeon: Atif Chi MD Pre Op Diagnosis: Esophageal Stricture Patient Data Age: 57 Gender: M Height: 1.75 m Weight: 46.4 kg Last Vital Signs Temp 97.5 F L 05/05/23 08:38 Pulse 65 05/05/23 08:38 Resp 18 05/05/23 08:38 BP 153/90 H 05/05/23 08:38 Pulse Ox 100 05/05/23 08:38 O2 Del Method Room Air 05/05/23 08:38 Allergies Allergy/AdvReac Type Severity Reaction Status Date / Time No Known Allergies Allergy Verified 05/05/23 08:37 Home Medications Medication Instructions Recorded Confirmed Type omeprazole 40 mg capsule,delayed 20 mg PO DAILY 02/25/23 05/05/23 History release Patient hx anesthesia problems: none Family hx anesthesia problems: none Results Review: All pre-operative results and documents have been reviewed as part of the pre-operative evaluation. [facility] Past Medical History Medical History (Updated 01/04/23 @ 16:46 by Cleve Sigala MD) Chronic GERD Emphysema lung Esophageal stricture Healthy adult male Surgical History Surgical History (Updated 01/01/23 @ 14:21 by Yury Bruno MD) No history of previous surgery Family History Family History Sibling Cancer Father Heart disease Mother Dementia Social History Social History (Updated 01/01/23 @ 22:49 by Comfort Douglass NP) Social History: He lives with 2 older brothers. He works for a [employer] which is a factor . The patient continues to smoke 1/2 ppd. he drinks Alcohol 3-4 alcoholic beverage a day . He has no children Code status full code Smoking packs per day: 0.5 Smoking cigarettes per day: 10.0 Years smoked: 30 Smoking pack-years: 15.00 Smoking status: Current every day smoker Tobacco type: cigarettes Second hand tobacco smoke exposure: No Alcohol intake: current Drinks per week: 21 Alcohol use details: amanda & coke Substance use: never Substance use type: does not use Lack of Transportation: No Lack of Food: Never True Current Housing: I Have Housing Concerned About Future Housing: No Difficulty Paying Gas/Electric Bills: No Difficulty Paying for Meds: No Currently Unemployed: No Education: High School Diploma/GED Difficulty w/ Childcare or Family Care: No Living arrangements: with family Spiritual care concerns: No Anes - Eval Final PreProcedure Day of Procedure 05/05/23 09:00 Patient weight: cachectic Heart: regular rate and rhythm Lungs: clear to auscultation Airway: Mallampati scale class II Neurological: alert and oriented Last oral intake: >/= 8 hours ASA classification: III Emergent: no Anesthetic plan: proceed Anesthesia type and monitoring: general GIVS and standard monitoring Results Review: All pre-operative results and documents have been reviewed as part of the pre-operative evaluation. Informed Consent: The patient's anesthetic plan and its attendant risks and benefits were discussed with the patient/family/POA. Questions were solicited and answers provided to the satisfaction of the patient/family/POA.
[2023-05-05] MEDS: BENZOCAINE (*SP) 60 ML SPRAY CAN (HURRICAINE) 1 SPRAY MUCOUS MEM (10:05)
[2023-05-05 10:18] VITALS: BP 149/93; PULSE 66; RESP 28; O2SAT 100
[2023-05-05 10:28] VITALS: BP 153/91; PULSE 61; RESP 26; O2SAT 98
[2023-05-05 10:38] VITALS: BP 165/95; PULSE 62; RESP 17; O2SAT 97
== END 2023-05-05 10:47 | disposition home or self-care (01) ==
PROVIDERS: Visit Provider Internal Medicine Gastroenterology
PROC: 0DJ08ZZ Inspection of Upper Intestinal Tract, Via Natural or Artificial Opening Endoscopic (ICD-10-PCS; CPT 43235; principal; 2023-05-05 10:00)
DX: C15.5 Malignant neoplasm of lower third of esophagus (principal); K22.2 Esophageal obstruction; K21.9 Gastro-esophageal reflux disease without esophagitis; E43 Unspecified severe protein-calorie malnutrition; J43.8 Other emphysema; F17.210 Nicotine dependence, cigarettes, uncomplicated; Z68.1 Body mass index [BMI] 19.9 or less, adult
CPT/HCPCS: 43249; 88305; C1726; J2704; J7120

== ENCOUNTER 2023-05-27 00:54 | Day surgery (SDC) | payer OTHER, SELFPAY ==
[2023-05-09 14:12] VITALS: BMI 13.9
[2023-05-27 09:09] VITALS: BP 149/92; PULSE 78; RESP 18; TEMP 36.5; O2SAT 97
[2023-05-27] MEDS: LACTATED RINGERS 1,000 ML 150 ML IV CONT (09:11)
--- NOTE | 2023-05-27 09:52 | PM.HPGS ---
History of Present Illness History of Present Illness Consent: Risks, benefits, and alternatives have been discussed and questions answered. Patient agrees to proceed with procedure. Chief complaint: Severe Esophageal Stricture Narrative: Navid Garrido is a 57 year old male Presents for follow-up EGD and dilatation. Patient has a tight esophageal stricture. Biopsies at the time most recent dilatation 1 month ago revealed this to be an esophageal carcinoma. Patient has subsequently been referred oncology. Patient states he has not yet seen oncology because of insurance issues. However patient apparently has been seen at [facility] in a PEG tube was placed 1 week ago. Patient required esophageal dilatation for this to occur. He states he recently ate chicken wings. Patient is quite thin in appearance. As the severed weight loss over last Year. Family history noncontributory. Patient presents today for follow-up EGD, possible dilatation. Review of Systems Review of Systems: Review of systems noncontributory. [facility] Past Medical History Medical History (Updated 05/07/23 @ 13:44 by Atif Chi MD) Chronic GERD Emphysema lung Esophageal stricture Healthy adult male Surgical History Surgical History (Updated 01/01/23 @ 14:21 by Yury Bruno MD) No history of previous surgery Family History Family History Sibling Cancer Father Heart disease Mother Dementia Social History Social History (Updated 01/01/23 @ 22:49 by Comfort Douglass NP) Social History: He lives with 2 older brothers. He works for a [employer] company which is a factor . The patient continues to smoke 1/2 ppd. he drinks Alcohol 3-4 alcoholic beverage a day . He has no children Code status full code Smoking packs per day: 0.5 Smoking cigarettes per day: 10.0 Years smoked: 25 Smoking pack-years: 12.50 Smoking status: Current every day smoker Tobacco type: cigarettes Second hand tobacco smoke exposure: No Alcohol intake: current Drinks per week: 3 Alcohol use details: amanda & madi Substance use: never Substance use type: does not use Lack of Transportation: No Lack of Food: Never True Current Housing: I Have Housing Concerned About Future Housing: No Difficulty Paying Gas/Electric Bills: No Difficulty Paying for Meds: No Currently Unemployed: No Education: High School Diploma/GED Difficulty w/ Childcare or Family Care: No Living arrangements: alone Spiritual care concerns: No Meds Home Medications and Allergies Home Medications Medication Instructions Recorded Confirmed Type omeprazole 40 mg capsule,delayed 20 mg PO DAILY 02/25/23 05/27/23 History release Allergies Allergy/AdvReac Type Severity Reaction Status Date / Time No Known Allergies Allergy Verified 05/27/23 09:08 Vital Signs Vital Signs - 24 hr 05/27/23 09:09 Temperature 97.7 F Pulse Rate 78 Respiratory Rate 18 Blood Pressure 149/92 H Pulse Oximetry 97 Oxygen Delivery Room Air Exam Narrative: Physical exam reveals patient to be alert. Patient is quite thin in appearance. Vital signs stable. HEENT exam is unremarkable. Patient is anicteric. Lungs are clear to auscultation and percussion. Heart without murmur. Abdomen bowel sounds present soft nontender peg tube in left upper quadrant appears be healing adequately. Assessment and Plan Assessment and plan (1) Esophageal cancer: Code(s): C15.9 - Malignant neoplasm of esophagus, unspecified Status: Acute Assessment and Plan: Patient with newly diagnosed esophageal cancer. Plan for patient to see Oncology. He is referred to Dr. Nguyen , affilicated with [facility], for this. (2) Esophageal stricture: Code(s): K22.2 - Esophageal obstruction Status: Acute Assessment and Plan: Patient known to hav
--- NOTE | 2023-05-27 09:55 | WPDANESEPPF ---
Anes - Initial Pre Proc Eval Procedure: Operation Date: 05/27/23 10:30 Proposed Procedures p Esophagogastroduodenoscopy - Atif Chi MD Date/Time: 05/27/23 09:55 Surgeon: Atif Chi MD Pre Op Diagnosis: Severe Esophageal Stricture Patient Data Age: 57 Gender: M Height: 1.8 m Weight: 46.6 kg Last Vital Signs Temp 36.5 C 05/27/23 09:09 Pulse 78 05/27/23 09:09 Resp 18 05/27/23 09:09 BP 149/92 H 05/27/23 09:09 Pulse Ox 97 05/27/23 09:09 O2 Del Method Room Air 05/27/23 09:09 Allergies Allergy/AdvReac Type Severity Reaction Status Date / Time No Known Allergies Allergy Verified 05/27/23 09:08 Home Medications Medication Instructions Recorded Confirmed Type omeprazole 40 mg capsule,delayed 20 mg PO DAILY 02/25/23 05/27/23 History release Patient hx anesthesia problems: none Family hx anesthesia problems: none Results Review: All pre-operative results and documents have been reviewed as part of the pre-operative evaluation. [facility] Past Medical History Medical History Chronic GERD Emphysema lung Esophageal stricture Healthy adult male Surgical History Surgical History No history of previous surgery Family History Family History Sibling Cancer Father Heart disease Mother Dementia Social History Social History Social History: He lives with 2 older brothers. He works for a [employer] which is a factor . The patient continues to smoke 1/2 ppd. he drinks Alcohol 3-4 alcoholic beverage a day . He has no children Code status full code Smoking packs per day: 0.5 Smoking cigarettes per day: 10.0 Years smoked: 25 Smoking pack-years: 12.50 Smoking status: Current every day smoker Tobacco type: cigarettes Second hand tobacco smoke exposure: No Alcohol intake: current Drinks per week: 3 Alcohol use details: amanda & coke Substance use: never Substance use type: does not use Lack of Transportation: No Lack of Food: Never True Current Housing: I Have Housing Concerned About Future Housing: No Difficulty Paying Gas/Electric Bills: No Difficulty Paying for Meds: No Currently Unemployed: No Education: High School Diploma/GED Difficulty w/ Childcare or Family Care: No Living arrangements: alone Spiritual care concerns: No Anes - Eval Final PreProcedure Day of Procedure 05/27/23 09:55 Patient weight: thin Heart: regular rate and rhythm Lungs: decreased breath sounds Airway: Mallampati scale class II Neurological: alert and oriented Last oral intake: >/= 8 hours ASA classification: III Emergent: no Anesthetic plan: proceed Anesthesia type and monitoring: general GIVS and standard monitoring Results Review: All pre-operative results and documents have been reviewed as part of the pre-operative evaluation. Informed Consent: The patient's anesthetic plan and its attendant risks and benefits were discussed with the patient/family/POA. Questions were solicited and answers provided to the satisfaction of the patient/family/POA.
[2023-05-27 10:47] VITALS: BP 115/77; PULSE 73; RESP 23; O2SAT 100
[2023-05-27 10:57] VITALS: BP 134/89; PULSE 66; RESP 22; O2SAT 100
[2023-05-27 11:07] VITALS: BP 111/85; PULSE 68; RESP 27; O2SAT 96
== END 2023-05-27 11:26 | disposition home or self-care (01) ==
PROVIDERS: Visit Provider Internal Medicine Gastroenterology
PROC: 0DJ08ZZ Inspection of Upper Intestinal Tract, Via Natural or Artificial Opening Endoscopic (ICD-10-PCS; CPT 43235; principal; 2023-05-27 10:30)
DX: C15.5 Malignant neoplasm of lower third of esophagus (principal); K22.2 Esophageal obstruction; Z93.1 Gastrostomy status; J43.9 Emphysema, unspecified; K21.9 Gastro-esophageal reflux disease without esophagitis; F17.210 Nicotine dependence, cigarettes, uncomplicated; E43 Unspecified severe protein-calorie malnutrition; Z68.1 Body mass index [BMI] 19.9 or less, adult
CPT/HCPCS: 43249; 88305; C1726; J2001; J2704; J7120

== ENCOUNTER → 2023-05-27 14:31 | Outpatient (CLI) | payer OTHER, SELFPAY ==
--- NOTE | ~2023-05-27 | CT_ITS ---
EXAMINATION: CT chest abdomen pelvis w con DATE: 05/27/2023 15:08 INDICATION: Adenocarcinoma the lower esophagus TECHNIQUE: Computed tomography (CT) of the chest, abdomen, and pelvis was performed with 100 mL Omnip aque-350 intravenous contrast. Automated exposure control and iterative reconstruction technique were employed. The dose-length product was 281.84 mGy-cm. COMPARISON: 01/01/2023 FINDINGS: CHEST CT: Mild upper lung predominant emphysema with mild biapical pleural-parenchymal scarring. There is mild elevation of the left hemidiaphragm with mild associated atelectasis. Also at the basilar right lower lobe are chronic groundglass and tree-in-bud opacities which is likely sequela prior infection. Ther e are new tree-in-bud opacities as well as small amount of mucus plugging in the subsegmental bronchi in the posterior basilar right lower lobe also likely infectious in etiology. No pulmonary edema, pl eural effusion or pneumothorax. Heart size is normal. No pericardial effusion. Atherosclerotic cruz ry artery calcifications. Thoracic aorta is normal in caliber with no dissection. Moderate-sized slid ing-type hiatal hernia. There is asymmetric wall thickening at the left side of the gastroesophageal junction with more uniform mild circumferential wall thickening in the more proximal mid to distal es ophagus. There are few paraesophageal lymph nodes in the lower thorax measuring up to 6 mm in maximal short axis diameter. No pathologically enlarged thoracic lymphadenopathy. Mild thoracic kyphosis wit h chronic mild anterior wedging of a few lower thoracic vertebral bodies and mild to moderate spondyl osis. ABDOMEN/PELVIS CT: Percutaneous gastrostomy tube bulb in the body of the stomach. There are some wall thickening at the gastric pylorus. Liver, gallbladder, spleen, pancreas, bilateral adrenal glands and kidneys are aviva l. Immediately distal to the ligament of Treitz is a proximal jejunal small bowel intussusception whi ch extends for approximately 6 cm . No more proximal dilation of the stomach or duodenum to suggest o bstruction. Normal appendix. Bladder is normal. No free intraperitoneal gas or fluid. No pathological ly enlarged abdominal or pelvic lymphadenopathy. Transitional thoracolumbar segment with bilateral hy poplastic riblets and transitional lumbosacral segment with 4 intervening nonrib-bearing lumbar segme nts. IMPRESSION: 1. Moderate-sized sliding-type hiatal hernia with asymmetric wall thickening at the gastroesophageal junction likely representing the site of a reported esophageal cancer. More diffuse wall thickening s een in the more proximal distal esophagus could represent additional disease or esophagitis related t o reflux. 2. 3 small paraesophageal lymph nodes which while still within normal limits for size would atypicall y enlarged for location suggesting possibility of local metastatic disease. No other lesions suspicio us for metastatic disease. 4. Emphysema with both chronic and more recent tree-in-bud opacities in the bilateral lower lobes con sistent with endobronchial spread of disease including atypical pneumonia. 5. Nonspecific wall thickening at the gastric pylorus which could be due to focal gastritis, peptic u lcer disease, inflammatory bowel disease, artifactual appearance due to peristalsis or less likely ma lignancy. 6. Percutaneous gastrostomy tube in the body of the stomach. 7. Likely transient small bowel intussusception at the proximal most jejunum. Reviewed, dictated and finalized at location A. IMPRESSION: 1. Moderate-sized sliding-type hiatal hernia with asymmetric wall thickening at the gastroesophageal junction likely representing the site of a reported esoph ageal cancer. More diffuse wall thickening seen in the more proximal distal eso phagus co
[2023-05-27 14:59] LABS: Estimated Glomerular Filt Rate > 60
== END ==
PROVIDERS: PCP Internal Medicine Hematology & Oncology; Visit Provider Internal Medicine Hematology & Oncology
DX: C15.5 Malignant neoplasm of lower third of esophagus (principal); K44.9 Diaphragmatic hernia without obstruction or gangrene; J43.9 Emphysema, unspecified
CPT/HCPCS: 71260; 74177; Q9967

== ENCOUNTER 2023-06-06 09:19 | Outpatient (CLI) | payer OTHER, SELFPAY ==
[2023-06-06 09:56] LABS: Basophils Absolute Auto 0.1 K/mm3 (0.0-0.1); Basophils Percent Auto 1.7 % (0.2-1.2); Eosinophils Absolute Auto 0.2 K/mm3 (0-0.3); Eosinophils Percent Auto 5.4 % (0-4.4); Hemoglobin 13.1 g/dL (14.0-18.0); Immature Granulocyte Absolute 0.02 K/mm3 (0.00-0.031); Immature Granulocyte Percent A 0.5 % (0-0.5); Lymphocytes Absolute Auto 0.96 K/mm3 (0.9-3.2); Lymphocytes Percent Auto 23.4 % (18.3-44.2); Mean Corpuscular HGB Conc 34.5 g/dl (32-36); Mean Corpuscular Hemoglobin 34.3 pg (26-34); Mean Corpuscular Volume 99.5 fl (80-100); Mean Platelet Volume 9.4 fl (7.4-10.4); Monocytes Absolute Auto 0.5 K/mm3 (0.1-0.6); Monocytes Percent Auto 12.7 % (2.6-8.5); Neutrophils Absolute Auto 2.3 K/mm3 (1.3-6.7); Neutrophils Percent Auto 56.3 % (45.5-73.1); Platelet Count Result 194 k/mm3 (150-375); Red Blood Count 3.82 M/mm3 (4.6-6.20); Red Cell Distribution Width 12.9 % (11.5-14.5); White Blood Count 4.1 K/mm3 (4.5-10.0)
[2023-06-06 10:16] LABS: INR 0.9; Partial Thromboplastin Time 29.1 SECONDS (22.3-36.8); Prothrombin Time 12.5 Seconds (11.1-14.7)
== END 2023-06-06 09:20 | disposition home or self-care (01) ==
PROVIDERS: Visit Provider Surgery
DX: Z01.818 Encounter for other preprocedural examination (principal); C15.9 Malignant neoplasm of esophagus, unspecified
CPT/HCPCS: 36415; 85025; 85610; 85730

== ENCOUNTER 2023-06-12 00:27 | Day surgery (SDC) | payer OTHER, SELFPAY ==
[2023-06-04 14:37] VITALS: BMI 14.8
--- NOTE | 2023-06-04 14:41 | PC.NURSE ---
Report to the Outpatient Waiting Room, entrance under the green pavilion located off [facility], at time 11:00 on date 06/12/23. Planned Procedure Time: 1:00. Time changes happen often and if your time is changed the preop area will call you the afternoon before. - You and your visitor will be asked to self-screen and do not enter if you have any COVID symptoms. - A mask is optional within the hospital at this time. Patients may have clear liquids (water, carbonated beverages, clear teas, apple juice) until 3 hours prior to surgery with a maximum of 20 ounces. - No food from midnight until time of surgery Take the following medications with a SIP of water the morning of surgery: N/A DO NOT STOP ANY OF YOUR OTHER PRESCRIPTION MEDICATIONS PRIOR TO SURGERY ?EXCEPT THE FOLLOWING Medications to discontinue per physician: N/A Date to take last dose: N/A Please no make-up, nail belarusian, hairspray, perfume, deodorant, or body powder the day of surgery. No jewelry (including any body piercings) or valuables the day of surgery, leave them at home. Please take a shower or bath the night before, or the morning of, surgery with an antibacterial soap. Wear comfortable, loose fitting clothing. - Jewelry must be removed prior to entering the operating room. Rings and piercings that are not removed may be cut off. - The hospital will not accept responsibility for valuables. - Please leave all valuables, including medications, at home the day of surgery. If you are going home after surgery, a licensed intermodal truck driver must drive you home. - NO public transportation without another adult if you receive anesthesia. - We recommend that an adult stay with you for 24 hours following discharge. - We also recommend that you do not drive, make important decision, drink alcoholic beverages, or take any drugs that were not prescribed by your health care provider for at least 24 hours after your discharge time. Follow any additional instructions given to you from your surgeon. If you or anyone in your household have experienced Covid symptoms in the past week, please notify your surgeon or the nurse liaison at the phone number below for possible testing. Telephone instructions given to PT - JOHN CRAIN and asked if any additional questions and then verbalized understanding. Patient advised to call surgeon office or pre surgery nurse liaison [phone] if any additional questions.
--- NOTE | ~2023-06-12 | XR_ITS ---
EXAMINATION: XR fl guide central line place INDICATION: Port-A-Cath insertion TECHNIQUE: A single intraoperative fluoroscopic images submitted for review. Total fluoroscopic time was 78.2 seconds. COMPARISON: None available FINDINGS: Fluoroscopic image demonstrates a left subclavian Port-A-Cath. The tip is beyond the inferi or margin of the fluoroscopic image. Please refer to procedure note for full details. IMPRESSION: 1. Please refer to procedure note for full details. Reviewed, dictated and finalized at location L.
--- NOTE | ~2023-06-12 | XR_ITS ---
EXAMINATION: XR chest port-a-cath/central INDICATION: Port-A-Cath insertion TECHNIQUE: Portable AP chest at 1408 hours COMPARISON: 01/01/2023 FINDINGS: A left subclavian Port-A-Cath ends with its tip at the superior cavoatrial junction. The samina ngs are hyperinflated but free of acute opacities. No pleural effusion or pneumothorax. The cardiomed iastinal silhouette is normal. There is a displaced posterior left eighth rib fracture with nonunion. Healing adjacent right ninth rib fracture is noted. IMPRESSION: 1. Left subclavian Port-A-Cath ends with its tip at the superior cavoatrial junction. No acute cardio pulmonary abnormality. Reviewed, dictated and finalized at location L. IMPRESSION: 1. Left subclavian Port-A-Cath ends with its tip at the superior cavoatrial garett ction. No acute cardiopulmonary abnormality.
--- NOTE | 2023-06-12 08:09 | PM.SD2 ---
Same Day Admit/Disch: HPI History of Present Illness Chief complaint: Esophageal cancer, inadequate venous access Narrative: Navid Garrido is a 57 year old male who had problems with dysphagia and weight loss. He was found on endoscopy to have a distal esophageal stricture due to malignancy. He has had a gastrostomy tube placed at [facility]. He is a potential candidate for resection but is to get neoadjuvant chemo radiation therapy. He is taken to surgery at this time for placement of a Port-A-Cath for his primary systemic chemotherapy. [facility] Past Medical History Medical History Chronic GERD Emphysema lung Esophageal stricture Healthy adult male Surgical History Surgical History No history of previous surgery Family History Family History Sibling Cancer Father Heart disease Mother Dementia Social History Social History Social History: He lives with 2 older brothers. He works for a [employer] which is a [id number] . The patient continues to smoke 1/2 ppd. he drinks Alcohol 3-4 alcoholic beverage a day . He has no children Code status full code Smoking packs per day: 0.5 Smoking cigarettes per day: 10.0 Years smoked: 35 Smoking pack-years: 17.50 Smoking status: Current every day smoker Tobacco type: cigarettes Second hand tobacco smoke exposure: No Alcohol intake: current Drinks per week: 14 Alcohol use details: AT LEAST 2 BEERS/NIGHT Substance use: never Substance use type: does not use Lack of Transportation: No Lack of Food: Never True Current Housing: I Have Housing Concerned About Future Housing: No Difficulty Paying Gas/Electric Bills: No Difficulty Paying for Meds: No Currently Unemployed: No Education: High School Diploma/GED Difficulty w/ Childcare or Family Care: No Living arrangements: with family Additional living arrangements comments: BROTHERS Spiritual care concerns: No Same Day Admit/Disch: Med Pre-admit Medications Home Medications Medication Instructions Recorded Confirmed Type omeprazole 40 mg capsule,delayed 20 mg PO DAILY 02/25/23 06/12/23 History release oxycodone-acetaminophen 5 mg-325 0.5 - 1 tablet PO Q8H PRN pain #10 06/12/23 Rx mg tablet tabs Review of Systems Review of Systems All systems reviewed & are unremarkable except as noted in HPI and below (HPI and those items noted below) Constitutional Constitutional: Denies chills and Denies fever(s) Cardiovascular Cardiovascular: Denies chest pain, Denies diaphoresis, Denies dyspnea and Denies paroxysmal nocturnal dyspnea Respiratory Respiratory: Denies chest congestion, Denies cough and Denies dyspnea Integumentary/Breasts Skin/Breast: Denies lesions and Denies rash Exam Const: General: cooperative, comfortable, no acute distress, alert, awake, tired appearing, malnourished and underweight Nutritional Appearance: underweight Orientation/consciousness: No confusion HENMT: Head: normocephalic and atraumatic Mouth: Yes Normal oral and palatal mucosa present Eyes: Conjunctivae: conjunctivae normal Pupils: Equal, round and reactive pupils present EOM: EOMs intact bilaterally Neck: Neck: normal visual inspection, no lymphadenopathy and nontender Chest: Chest palpation & inspection: normal inspection of the chest, no masses, No Pacemaker present and No rash Resp: Effort & Inspection: normal respiratory effort Auscultation: clear to auscultation bilaterally Cardio: Rate: regular rate Rhythm: regular rhythm Heart sounds: no gallops, no murmurs and no rubs GI: Inspection: non-distended GI Palp: Yes Soft to palpation, No Tenderness to palpation present (GI), No Hepatomegaly present and No Splenomegaly present Other: Gastrostomy tub
[2023-06-12 12:14] VITALS: BP 132/83; PULSE 78; RESP 16; TEMP 36.9; O2SAT 94
--- NOTE | 2023-06-12 12:21 | P.PNAN_ITS ---
Anes - Initial Pre Proc Eval Procedure: Operation Date: 06/12/23 13:00 Proposed Procedures p Insertion Ron Cath - Darren Anna MD Date/Time: 06/12/23 12:21 Surgeon: Darren Anna MD Pre Op Diagnosis: Esophageal cancer, inadequate venous access Patient Data Age: 57 Gender: M Height: 1.75 m Weight: 45.5 kg Allergies Allergy/AdvReac Type Severity Reaction Status Date / Time No Known Allergies Allergy Verified 06/04/23 14:36 Home Medications Medication Instructions Recorded Confirmed Type omeprazole 40 mg capsule,delayed 20 mg PO DAILY 02/25/23 06/04/23 History release Patient hx anesthesia problems: none Family hx anesthesia problems: none Results Review: All pre-operative results and documents have been reviewed as part of the pre- operative evaluation. [facility] Past Medical History Medical History Chronic GERD Emphysema lung Esophageal stricture Healthy adult male Surgical History Surgical History No history of previous surgery Family History Family History Sibling Cancer Father Heart disease Mother Dementia Social History Social History Social History: He lives with 2 older brothers. He works for a [employer] which is a [employer] . The patient continues to smoke 1/2 ppd. he drinks Alcohol 3-4 alcoholic beverage a day . He has no children Code status full code Smoking packs per day: 0.5 Smoking cigarettes per day: 10.0 Years smoked: 35 Smoking pack-years: 17.50 Smoking status: Current every day smoker Tobacco type: cigarettes Second hand tobacco smoke exposure: No Alcohol intake: current Drinks per week: 14 Alcohol use details: AT LEAST 2 BEERS/NIGHT Substance use: never Substance use type: does not use Lack of Transportation: No Lack of Food: Never True Current Housing: I Have Housing Concerned About Future Housing: No Difficulty Paying Gas/Electric Bills: No Difficulty Paying for Meds: No Currently Unemployed: No Education: High School Diploma/GED Difficulty w/ Childcare or Family Care: No Living arrangements: with family Additional living arrangements comments: BROTHERS Spiritual care concerns: No Anes - Eval Final PreProcedure Day of Procedure 06/12/23 12:21 Patient weight: cachectic Heart: regular rate and rhythm Lungs: clear to auscultation Airway: Mallampati scale class II Neurological: alert and oriented Last oral intake: >/= 8 hours ASA classification: III Emergent: no Anesthetic plan: proceed Anesthesia type and monitoring: general GIVS and standard monitoring Results Review: All pre-operative results and documents have been reviewed as part of the pre- operative evaluation. Informed Consent: The patient's anesthetic plan and its attendant risks and benefits were discussed with the patient/family/POA. Questions were solicited and answers provided to the satisfaction of the patient/family/POA.
[2023-06-12] MEDS: LACTATED RINGERS 1,000 ML 30 ML IV CONT (12:22)
[2023-06-12] MEDS: KETOROLAC 15 MG/ML VIAL (*BKC) IV PUSH (12:22)
--- NOTE | 2023-06-12 12:43 | WPDHPUPDATE1 ---
History and Physical Update Update Date/Time: 06/12/23 12:43 History and Physical has been reviewed, including an updated exam of the patient. There are NO changes in the patient's condition. Risks, benefits, and alternatives have been discussed and questions answered. Patient agrees to proceed with procedure.
[2023-06-12] MEDS: ceFAZolin 2 GM/D5W 50 ML 2 GM/50 ML BAG IVPB (13:07)
[2023-06-12] MEDS: BUPivacaine HCL 0.5% 10 ML AMP 30 ML INFILTRATE (13:40)
[2023-06-12] MEDS: HEPARIN SODIUM 1,000 UNITS/ML VIAL 1000 UNITS IV PUSH (13:42)
[2023-06-12 13:58] VITALS: BP 122/77; PULSE 84; RESP 14; O2SAT 100
--- NOTE | 2023-06-12 14:20 | P.OP_ITS ---
Procedure Note - Detailed Date of Procedure 06/12/23 Pre-op Diagnosis Esophageal cancer, inadequate venous access Post-op Diagnosis Same Procedure Performed Placement left subclavian Port-A-Cath under fluoroscopy Surgeon Darren Anna MD [facility] Veronica Unger [facility] Anesthesia MAC and Local Indications Patient is a 57-year-old man with weight loss and dysphagia. He has an esophageal stricture which biopsy showed esophageal cancer. He is to undergo chemoradiation therapy and may then possibly be a candidate for resection. He is taken to surgery at this time for placement of a Port-A-Cath. Findings Port-A-Cath distal tip at the right atrial distal SVC junction. Description of Procedure Patient was taken to surgery and IV sedation was administered. The left neck and left subclavian area were prepped and draped. The proposed incision was marked on the skin. Local was infiltrated into the skin and the deeper subcutaneous tissue. Incisions were then made and dissected down through the subcutaneous. Patient is very thin and there was very little subcutaneous. We divided through the pectoralis major fascia. I then created a subfascial pocket. I infiltrated additional local into the pectoralis muscle as well as under the left clavicle. Patient was then placed in Trendelenburg. The left subclavian vein was cannulated. A guidewire passed readily into the superior vena cava. The position of the guidewire was verified by C-arm fluoroscopy. I then used fluoroscopy to measure the length of the Port-A-Cath that would be needed. Port-A-Cath was cut to the appropriate length. I then passed an introducer and sheath over the guidewire the into the superior vena cava. This was done under fluoroscopy as well. I then removed the introducer and guidewire. The Port-A-Cath tubing was passed through the sheath and into the superior vena cava. I verified this with fluoroscopy. I then removed the sheath. The Port-A-Cath was placed in the pocket. C-arm fluoroscopy showed that the Port-A-Cath was in good position with the tip in the distal SVC right atrial junction. I checked the Port-A-Cath and aspirated blood and flushed easily with heparin. I sutured the Port-A-Cath to the pectoralis major muscle with 2-0 silk. I recheck the Port-A-Cath. It again aspirated and flushed easily. I closed the pocket with layered running closure of 2-0 Vicryl suture. The skin was closed with running 4-0 Monocryl skin suture. The wound was dressed with Exofin surgical adhesive. Patient was awakened and taken to recovery in good condition. Sponge and needle counts were correct x2. Postprocedure chest x-ray by my review showed no pneumothorax and the Port-A-Cath to be in good position. Estimated Blood Loss -5.0 Drains No Packing No Pathology None sent Complications No immediate complications Condition Stable Disposition Same day [facility] Billing Surgery - Charge Forward: Surgery Billing (Placement Port-A-Cath under fl uoroscopy)
[2023-06-12 14:25] VITALS: BP 122/77; PULSE 84; RESP 20
--- NOTE | 2023-06-12 14:44 | SUR.PHASEII ---
1430 - chest xray results noted
[2023-06-12 14:50] VITALS: BP 146/73; PULSE 66; RESP 20
== END 2023-06-12 15:21 | disposition home or self-care (01) ==
PROVIDERS: Visit Provider Surgery
PROC: (CPT 36561; principal; 2023-06-12 13:00)
DX: C15.5 Malignant neoplasm of lower third of esophagus (principal); I87.2 Venous insufficiency (chronic) (peripheral); K21.9 Gastro-esophageal reflux disease without esophagitis; J43.9 Emphysema, unspecified; Z93.1 Gastrostomy status; F17.210 Nicotine dependence, cigarettes, uncomplicated; R64 Cachexia; Z68.1 Body mass index [BMI] 19.9 or less, adult
CPT/HCPCS: 36561; 36415; 77001; 85025; 85610; 85730; C1788; J0690; J1644; J1885; J2250; J2405; J2704; J3010; J7030; J7120

== ENCOUNTER 2023-06-17 12:13 | Outpatient (CLI) | payer OTHER, SELFPAY ==
--- NOTE | ~2023-06-17 | PE_ITS ---
EXAMINATION: PET skull to mid thigh DATE: 06/17/2023 14:05 INDICATION: Adenocarcinoma the lower esophagus TECHNIQUE: Blood glucose level was 86 mg/dL. 10.387 mCi of 18-fluorodeoxyglucose (18-FDG) was adminis tered i.v. Low dose computed tomography (CT) images were acquired from the base of the brain to the p roximal thighs for attenuation correction and anatomic localization. Positron emission tomography (PE T) images were acquired in the same distribution beginning 61 minutes after injection. Images includi ng fused PET/CT images were reconstructed in axial, coronal, and sagittal planes. Automated exposure control technique was employed. The dose-length product was 486.01mGy-cm. COMPARISON: CT dated 05/27/2023 FINDINGS: Head/neck: There is symmetric increased activity in the nares, oral cavity, palatine tonsils, parotid glands, s ubmandibular glands, laryngeal muscles and ocular muscles without CT correlate, likely physiologic. A dditional likely physiologic mild uptake extending longitudinally along the posterior cervical parasp inal musculature without radiologic correlate. No pathologically enlarged cervical lymphadenopathy or suspicious foci of increased FDG uptake in the visualized head or neck. Chest: Emphysema with mild right apical pleural-parenchymal scarring. There is negligible uptake associated with a region of persistent mucous plugging and tree-in-bud opacity in the posterior basilar right lo wer lobe consistent with pneumonia. Uptake associated with a couple old healed/healing posterior left 10th-12th rib fractures. There is underlying chronic pleural parenchymal scarring with increased sub pleural fat. Associated bands of round atelectasis with associated architectural distortion local vol ume loss. There is mild FDG uptake associated with a couple of the regions of round atelectasis with maximal SUV is of 2.0. No new airspace opacities, pulmonary edema or pleural effusion. Heart size is normal. No pericardial effusion. Atherosclerotic coronary artery calcific location. Left subclavian c entral venous port catheter with distal tip in the high right atrium. Moderate sized sliding-type hia heather hernia. There is wall thickening with moderate increased FDG uptake involving the distal 6 cm the esophagus consistent with reported history of a lower esophageal adenocarcinoma. There is no evident increased FDG uptake associated with the previous noted 3 subcentimeter paraesophageal lymph nodes. No other pathologically enlarged or FDG avid thoracic lymphadenopathy. Abdomen/pelvis/proximal thighs: Likely physiologic increased uptake along the tract of a percutaneous gastrostomy tube with inflated bulb within the body of the stomach. The previously seen wall thickening at the gastric pylorus as re solved. Physiologic renal accumulation and excretion of FDG activity in the kidneys, bladder and carlito g portions of ureters. Normal degree and heterogenous pattern of increased uptake throughout the live r without radiologic correlate or dominant FDG avid lesion. The gallbladder, pancreas, spleen and brooklynn ateral adrenal glands are normal. Mild uptake scattered throughout the bowels without radiologic bharat elate, also likely physiologic. The previously seen small bowel intussusception has resolved. There a re few diverticula along the sigmoid colon. Small rim calcified heterotopic ossicle in the upper pelv is which may represent sequela of chronic fat necrosis. There is prominent wall thickening in the par tially decompressed bladder. No other abnormal foci of increased FDG uptake or pathologically enlarge d lymphadenopathy in the abdomen, pelvis or proximal thighs. Musculoskeletal: Aside from the previous noted old rib fractures, no suspicious lytic, blastic or FDG avid bone lesion s identified. IMPRESSION: 1. Moderate-sized sliding-type hiatal hernia with esophageal wall thickening and increased FDG uptake in the distal 6 cm th
[2023-06-17 12:34] LABS: Glucose Point of Care 86 mg/dl (65-105)
== END 2023-06-17 12:14 | disposition home or self-care (01) ==
PROVIDERS: Visit Provider Internal Medicine Hematology & Oncology
DX: C15.5 Malignant neoplasm of lower third of esophagus (principal); J43.9 Emphysema, unspecified; K44.9 Diaphragmatic hernia without obstruction or gangrene
CPT/HCPCS: 78815; 99212; A9552; G0463